=== PATIENT | male | born 1960 | race Caucasian/White ===

== ENCOUNTER 2021-03-06 00:44 | Inpatient (IN) ==
[2021-03-06 01:51] LABS: Basophils # (auto) 0.01 K/uL (0-0.2); Basophils % (auto) 0.2 %; Eosinophils # (auto) 0.16 K/uL (0-0.5); Eosinophils % (auto) 3.1 %; Hematocrit (blood only) 30.8 % (42-52); Hemoglobin 10.1 g/dL (14.0-18.0); Immature Granulocytes # (auto) 0.02 K/uL (0.00-0.02); Immature Granulocytes % (auto) 0.4 %; Lymphocytes # (auto) 1.05 K/uL (1.2-3.4); Lymphocytes % (auto) 20.5 %; Mean Corpuscular Hemoglobin 30.4 pg (25-34); Mean Corpuscular Hgb Conc 32.8 g/dL (32-36); Mean Corpuscular Volume 92.8 fL (80-100); Mean Platelet Volume 9.7 fL (7.4-10.4); Monocytes % (auto) 13.7 %; Neutrophils # (auto) 3.17 K/uL (1.4-6.5); Neutrophils % (auto) 62.1 %; Platelet Count 148 K/uL (130-400); RDW Coefficient of Variation 16.9 % (11.5-14.5); RDW Standard Deviation 56.9 fL (36.4-46.3); Red Blood Count 3.32 M/uL (4.7-6.1); White Blood Count 5.11 K/uL (4.8-10.8)
[2021-03-06 02:09] LABS: Alanine Aminotransferase 29 U/L (12-78); Albumin Level 2.9 gm/dl (3.4-5.0); Aspartate Aminotransferase 33 U/L (15-37); BUN Creatinine Ratio 21.8 (10-20); Blood Urea Nitrogen 16 mg/dl (7-18); Carbon Dioxide 25 mmol/L (21-32); Chloride 108 mmol/L (98-107); Creatinine Clr Calc Pharmacy 223.1 ml/min; Est GFR (African American) 118.5 ml/min; Est GFR (Non-African American) 102.2 ml/min; Glucose 108 mg/dl (70-99); Potassium 4.2 mmol/L (3.5-5.1); Sodium 136 mmol/L (136-145)
[2021-03-06 02:14] LABS: Albumin Globulin Ratio 0.8 (0.9-2); Alkaline Phosphatase 248 U/L (45-117); Bilirubin,Total 0.4 mg/dl (0.2-1); Globulin 3.8 gm/dl (2.5-4.0); Total Protein 6.7 gm/dl (6.4-8.2); Troponin I < 0.015 ng/ml (0-0.045)
[2021-03-06] MEDS ORDERED: BUMETANIDE 2 MG in SYRINGE 0 ML IV ONE (02:23)
[2021-03-06 02:27] LABS: NT Pro B Type Natriuretic Pept 125 pg/ml (0-900)
--- NOTE | 2021-03-06 02:47 | Emergency Department Note ---
History of Present Illness General Chief complaint: Chest Pain Stated complaint: CHEST PAIN Time Seen by Provider: 03/06/21 01:02 Source: patient Mode of arrival: EMS Limitations: no limitations History of Present Illness Provider complaint: Chest pain, shortness of breath, increased fluid Onset (ago): day(s) Associated symptoms: + chest pain, + cough and + shortness of breath; no fever/chills or no nausea/vomiting Treatments prior to arrival: none This is a 60-year-old male presents via EMS from [facility] due to complaint of chest pain. Patient states over the course of the last week since he was admitted there they have been giving him Lasix instead of his usual Bumex. He states his terra cotta setter had told him that the Lasix no longer works on him and he has been on Bumex for a while. He states despite them giving him Lasix, he h as continued to have increasing lower extremity edema, over the last few days has not had accompanying orthopnea and increased shortness of breath and tonight developed left-sided chest pain. Patient's terra cotta setter is typically out of the area. He does not recall when he last had an echo. Patient denies fevers, chills, or worsening cough. Patient states he does typically wear CPAP at night. Patient denies vomiting, diarrhea. Pt seen during a time of high acuity and national emergency pandemic while wearing PPE. Home Medications Medication Instructions Recorded Confirmed Type acetaminophen 325 mg capsule 650 mg PO Q6H 02/15/21 03/06/21 History (Tylenol) cyclobenzaprine 10 mg tablet 10 mg PO TID 02/15/21 03/06/21 History diclofenac sodium 1 % topical gel 4 g TOPICAL TID 02/15/21 03/06/21 History magnesium hydroxide 400 mg/5 mL 30 ml PO UD PRN 02/15/21 03/06/21 History oral suspension (Milk of Magnesia) oxycodone 10 mg tablet 10 mg PO Q6H 02/15/21 03/06/21 History pramipexole 0.5 mg tablet (Mirapex) 0.5 mg PO HS 02/15/21 03/06/21 History pregabalin 100 mg capsule (Lyrica) 100 mg PO BID 02/15/21 03/06/21 History sulfasalazine 500 mg 1 g PO BID 02/15/21 03/06/21 History tablet,delayed release acetaminophen 325 mg tablet 650 mg PO Q6H PRN 03/06/21 03/06/21 History (Tylenol) aspirin 81 mg tablet,delayed 81 mg PO DAILY 03/06/21 03/06/21 History release bisacodyl 5 mg tablet,delayed 5 mg PO DAILY 03/06/21 03/06/21 History release citalopram 20 mg tablet (Celexa) 20 mg PO DAILY 03/06/21 03/06/21 History ferrous sulfate 325 mg (65 mg 325 mg PO DAILY 03/06/21 03/06/21 History iron) tablet fluticasone propionate 50 2 spray INTRANASAL HS 03/06/21 03/06/21 History mcg/actuation nasal spray,suspension furosemide 20 mg tablet (Lasix) 20 mg PO DAILY 03/06/21 03/06/21 History irbesartan 300 mg tablet 300 mg PO DAILY 03/06/21 03/06/21 History lamotrigine 200 mg tablet 400 mg PO DAILY 03/06/21 03/06/21 History (Lamictal) lansoprazole 30 mg capsule,delayed 30 mg PO DAILYBB 03/06/21 03/06/21 History release ondansetron HCl 4 mg tablet 4 mg PO Q6H PRN 03/06/21 03/06/21 History (Zofran) polyethylene glycol 3350 17 17 g PO DAILY PRN 03/06/21 03/06/21 History gram/dose oral powder (Miralax) Allergies Allergy/AdvReac Type Severity Reaction Status Date / Time No Known Allergies Allergy Verified 03/06/21 01:34 Past Med/Surg History Medical History (Updated 03/06/21 @ 10:17 by Jeremy Valerio DO) Anxiety disorder Cellulitis Delirium Hypertension Obesity Obstructive sleep apnea Restless leg syndrome Sepsis Septic joint of right knee joint Social History Smoking Status: Current some day smoker Tobacco Type: Pipe Second Hand Exposure: Yes; Do You Dip or Chew Tobacco: No; Tobacco Cessation Education Requested by Patient: No Hx Alcohol Use: Yes (has not had alcohol in a year and a half) Hx Substance Use: No Preferred Language: Syriac Communication Ability: Effective Wood Borer Required: No Beliefs That Will Affect Care: None Current Living Situation: Significant Other Other Information That Helps Us Care for You: No Feels Safe at Home: Yes Safety Concerns: Feels Safe At This Time Assistive Devices: Walker Review of Systems A total of 10 systems reviewed and were otherwise negative All systems reviewed & are unremarkable except as noted in HPI & below Physical Exam Vital Signs Vital Signs - 24 hr 03/06/21 00:54 03/06/21 00:57 03/06/21 01:00 Temperature 37.1 C Temperature Source Oral Pulse Rate 87 88 85 Pulse Rate [Finger] Pulse Rate from SpO2 Sensor 87 86 Respiratory Rate 18 17 Blood Pressure 182/89 H 182/89 H 186/85 H Blood Pressure [Right Arm] Blood Pressure Mean 120 120 118 Blood Pressure Mean [Right Arm] Pulse Oximetry 96 98 97 Oxygen Delivery Method Room Air Room Air Room Air Oxygen Flow Rate Sepsis Recent Fever Within 48 Hours No Sepsis New/Unexplained Change in Mental Status N/A Sepsis Action Taken by Nursing No Action Required 03/06/21 01:04 03/06/21 01:14 03/06/21 01:30 Temperature Temperature Source Pulse Rate 85 Pulse Rate [Finger] 88 Pulse Rate from SpO2 Sensor 85 Respiratory Rate 15 Blood Pressure 193/100 H Blood Pressure [Right Arm] 182/89 H Blood Pressure Mean 131 Blood Pressure Mean [Right Arm] 120 Pulse Oximetry 98 98 98 Oxygen Delivery Method Room Air Room Air Room Air Oxygen Flow Rate 0 Sepsis Recent Fever Within 48 Hours Sepsis New/Unexplained Change in Mental Status Sepsis Action Taken by Nursing 03/06/21 01:38 03/06/21 02:00 03/06/21 02:10 Temperature Temperature Source Pulse Rate 83 85 85 Pulse Rate [Finger] Pulse Rate from SpO2 Sensor 86 85 Respiratory Rate 17 15 Blood Pressure Blood Pressure [Right Arm] Blood Pressure Mean Blood Pressure Mean [Right Arm] Pulse Oximetry 98 99 Oxygen Delivery Method Room Air Oxygen Flow Rate Sepsis Recent Fever Within 48 Hours Sepsis New/Unexplained Change in Mental Status Sepsis Action Taken by Nursing 03/06/21 02:30 03/06/21 03:00 03/06/21 03:30 Temperature Temperature Source Pulse Rate 81 90 86 Pulse Rate [Finger] Pulse Rate from SpO2 Sensor 81 89 86 Respiratory Rate 15 19 17 Blood Pressure 143/89 H 163/88 H Blood Pressure [Right Arm] Blood Pressure Mean 107 113 Blood Pressure Mean [Right Arm] Pulse Oximetry 98 98 100 Oxygen Delivery Method Oxygen Flow Rate Sepsis Recent Fever Within 48 Hours Sepsis New/Unexplained Change in Mental Status Sepsis Action Taken by Nursing 03/06/21 04:00 Temperature Temperature Source Pulse Rate 92 H Pulse Rate [Finger] Pulse Rate from SpO2 Sensor 92 H Respiratory Rate 16 Blood Pressure 152/95 H Blood Pressure [Right Arm] Blood Pressure Mean 114 Blood Pressure Mean [Right Arm] Pulse Oximetry 95 Oxygen Delivery Method Oxygen Flow Rate Sepsis Recent Fever Within 48 Hours Sepsis New/Unexplained Change in Mental Status Sepsis Action Taken by Nursing GENERAL: alert, well appearing, well nourished, no distress, non-toxic, BMI 69 EYE EXAM: normal conjunctiva, PERRL and EOM's grossly intact OROPHARYNX: no exudate, no erythema, lips, buccal mucosa, and tongue normal and mucous membranes are moist NECK: supple, no nuchal rigidity, no adenopathy, non-tender LUNGS: Clear to auscultation. Normal chest wall mechanics, no w/r/r HEART: no murmurs, S1 normal and S2 normal, mild tenderness with palpation left anterior inferior ribs, no step off, no crepitus ABDOMEN: abdomen soft, non-tender, normo-active bowel sounds, no masses, no rebound or guarding. BACK: Back is symmetrical on inspection and there is no deformity, no midline tenderness, no CVA tenderness. SKIN: no rashes and no bruising UPPER EXTREMITIES: upper extremities are grossly normal. FROM, nml pulses b/l. LOWER EXTREMITIES: 3+ b/l pitting edema. FROM, nml pulses b/l. NEURO EXAM: Normal sensorium, cranial nerves II-XII grossly intact, normal speech, no gross weakness of arms, no gross weakness of legs. Gross sensation intact. Course Course 39480: Patient states he typically is supposed be taking 2 mg of Bumex daily. 0350: Discussed with hospitalist. BP improved. Administered Medications Acetaminophen (Acetaminophen 325 Mg Tab) 650 mg PO Q6H MALAIKA Stop: 04/05/21 09:59 Last Admin: 03/07/21 04:07 Dose: 650 mg Documented by: [id number] Admin: 03/06/21 20:41 Dose: 650 mg Documented by: [id number] Admin: 03/06/21 16:41 Dose: 650 mg Documented by: [id number] Admin: 03/06/21 10:46 Dose: 650 mg Documented by: [id number] Aspirin (Aspirin 81 Mg Ectab) 81 mg PO DAILY MALAIKA Stop: 04/05/21 09:20 Last Admin: 03/07/21 08:54 Dose: 81 mg Documented by: [id number] Admin: 03/06/21 10:45 Dose: 81 mg Documented by: [id number] Bisacodyl (Bisacodyl 5 Mg Tabec) 5 mg PO DAILY MALAIKA Stop: 04/05/21 09:20 Last Admin: 03/07/21 08:56 Dose: Not Given Documented by: [id number] Admin: 03/06/21 16:38 Dose: Not Given Documented by: [id number] Citalopram Hydrobromide (Citalopram 20 Mg Tab) 20 mg PO DAILY MALAIKA Stop: 04/05/21 09:20 Last Admin: 03/07/21 08:55 Dose: 20 mg Documented by: [id number] Admin: 03/06/21 10:46 Dose: 20 mg Documented by: [id number] Cyclobenzaprine HCl (Cyclobenzaprine Hcl 10 Mg Tab) 10 mg PO 0100,0800,1600 MALAIKA Stop: 04/05/21 09:59 Last Admin: 03/07/21 08:55 Dose: 10 mg Documented by: [id number] Admin: 03/07/21 00:28 Dose: Not Given Documented by: [id number] Admin: 03/06/21 16:42 Dose: 10 mg Documented by: [id number] Admin: 03/06/21 10:46 Dose: 10 mg Documented by: [id number] Diclofenac Sodium (Diclofenac Sod 1% Gel 100 Gm Tube) 4 gm EXT TID MALAIKA Stop: 04/05/21 09:20 Last Admin: 03/07/21 08:56 Dose: Not Given Documented by: [id number] Admin: 03/06/21 20:42 Dose: Not Given Documented by: [id number] Admin: 03/06/21 16:38 Dose: Not Given Documented by: [id number] Admin: 03/06/21 10:49 Dose: Not Given Documented by: [id number] Enoxaparin Sodium (Enoxaparin Inj 40 Mg/0.4 Ml Syr) 40 mg SQ QAM MALAIKA Stop: 04/05/21 09:20 Last Admin: 03/07/21 08:59 Dose: 40 mg Documented by: [id number] Admin: 03/06/21 10:44 Dose: 40 mg Documented by: [id number] Ferrous Sulfate (Ferrous Sulfate 325 Mg Tab) 325 mg PO DAILY MALAIKA Stop: 04/05/21 09:59 Last Admin: 03/07/21 08:55 Dose: 325 mg Documented by: [id number] Admin: 03/06/21 10:46 Dose: 325 mg Documented by: [id number] Fluticasone Propionate (Fluticasone Propionate Na Spr 16 Gm Btl) 2 sprays NA HS MALAIKA Stop: 04/05/21 20:59 Last Admin: 03/06/21 20:43 Dose: 2 sprays Documented by: [id number] Bumetanide 2 mg/ Syringe 8 mls @ 4 mls/min IV BID@0900,1700 [facility] Stop: 04/05/21 09:54 Last Admin: 03/07/21 09:05 Dose: 4 mls/min Documented by: [id number] Admin: 03/06/21 16:41 Dose: 4 mls/min Documented by: [id number] Admin: 03/06/21 10:49 Dose: 4 mls/min Documented by: [id number] Irbesartan (Irbesartan 150 Mg Tab) 300 mg PO DAILY MALAIKA Stop: 04/06/21 08:59 Last Admin: 03/07/21 08:54 Dose: 300 mg Documented by: [id number] Lamotrigine (Lamotrigine 100 Mg Tab) 400 mg PO DAILY [facility] Stop: 04/05/21 09:20 Last Admin: 03/07/21 08:55 Dose: 400 mg Documented by: [id number] Admin: 03/06/21 10:45 Dose: 400 mg Documented by: [id number] Metoprolol Succinate (Metoprolol Succ 25mg Ext Rel Tab) 25 mg PO QAM MALAIKA Stop: 04/05/21 13:59 Last Admin: 03/07/21 08:55 Dose: 25 mg Documented by: [id number] Admin: 03/06/21 14:15 Dose: 25 mg Documented by: [id number] Oxycodone HCl (Oxycodone Hcl Ir 5 Mg Tab (Immediate Release)) 10 mg PO Q6 [facility] Stop: 03/20/21 11:59 Last Admin: 03/07/21 04:07 Dose: 10 mg Documented by: [id number] Admin: 03/07/21 00:28 Dose: Not Given Documented by: [id number] Admin: 03/06/21 16:38 Dose: 10 mg Documented by: [id number] Admin: 03/06/21 11:00 Dose: Not Given Documented by: [id number] Oxycodone HCl (Oxycodone Hcl Ir 5 Mg Tab (Immediate Release)) 5 mg PO Q4H PRN PRN Reason: Pain Stop: 03/20/21 09:20 Last Admin: 03/06/21 10:43 Dose: 5 mg Documented by: [id number] Pantoprazole Sodium (Pantoprazole 40 Mg Tab) 40 mg PO DAILYBB MALAIKA Stop: 04/06/21 06:29 Last Admin: 03/07/21 04:07 Dose: 40 mg Documented by: [id number] Potassium Chloride (Potassium Chloride Crtab 20 Meq Tabcr) 20 meq PO BID MALAIKA Stop: 04/05/21 09:20 Last Admin: 03/07/21 08:55 Dose: 20 meq Documented by: [id number] Admin: 03/06/21 20:42 Dose: 20 meq Documented by: [id number] Admin: 03/06/21 10:45 Dose: 20 meq Documented by: [id number] Pramipexole Dihydrochloride (Pramipexole Dihydrochlo 0.5 Mg Tab) 0.5 mg PO HS MALAIKA Stop: 04/05/21 20:59 Last Admin: 03/06/21 20:41 Dose: 0.5 mg Documented by: [id number] Pregabalin (Pregabalin 100 Mg Cap) 100 mg PO BID MALAIKA Stop: 04/05/21 09:20 Last Admin: 03/07/21 09:05 Dose: 100 mg Documented by: [id number] Admin: 03/06/21 20:41 Dose: 100 mg Documented by: [id number] Admin: 03/06/21 10:44 Dose: 100 mg Documented by: [id number] Sulfasalazine (Sulfasalazine 500 Mg Tabec) 1,000 mg PO BID MALAIKA Stop: 04/05/21 09:20 Last Admin: 03/07/21 08:54 Dose: 1,000 mg Documented by: [id number] Admin: 03/06/21 20:42 Dose: 1,000 mg Documented by: [id number] Admin: 03/06/21 14:42 Dose: 1,000 mg Documented by: [id number] Discontinued Medications Furosemide (Furosemide 40 Mg/4 Ml Vial) 40 mg IV BID MALAIKA Stop: 03/06/21 21:01 Last Admin: 03/06/21 19:45 Dose: Not Given Documented by: [id number] Bumetanide 2 mg/ Syringe 8 mls @ 4 mls/min IV ONE ONE Stop: 03/06/21 02:24 Last Admin: 03/06/21 02:57 Dose: 4 mls/min Documented by: [id number] Irbesartan (Irbesartan 150 Mg Tab) 300 mg PO NOW STA Stop: 03/06/21 06:03 Last Admin: 03/06/21 08:47 Dose: 300 mg Documented by: [id number] Metoprolol Tartrate (Metoprolol Tartrate 25 Mg Tab) 12.5 mg PO NOW STA Stop: 03/06/21 06:01 Last Admin: 03/06/21 06:21 Dose: 12.5 mg Documented by: [id number] Nitroglycerin (Nitroglycerin 2% Ointment 30gm Tube) 1 inch EXT NOW STA Stop: 03/06/21 03:19 Last Admin: 03/06/21 03:46 Dose: 1 inch Documented by: [id number] Medical Decision Making Differential Diagnosis Differential diagnoses includes but is not limited to acute coronary syndrome, myocardial infarction, pericarditis, pulmonary embolus, aortic dissection, pneumonia, pneumothorax, musculoskeletal, shingles, esophageal. Medical Records Attestation: I reviewed the patient's medical records. Home Medications Current Medication List: was personally reviewed by me Laboratory Data Attestation: I reviewed the patient's lab results. Result diagrams: 03/07/21 06:04 03/07/21 07:12 Lab Results 03/06/21 03/06/21 03/06/21 Range/Units 01:41 01:41 01:41 WBC 5.11 (4.8-10.8) K/uL RBC 3.32 L (4.7-6.1) M/uL Hgb 10.1 L (14.0-18.0) g/dL Hct 30.8 L (42-52) % MCV 92.8 (80-100) fL MCH 30.4 (25-34) pg MCHC 32.8 (32-36) g/dL RDW Std Deviation 56.9 H (36.4-46.3) fL RDW Coeff of Pablo 16.9 H (11.5-14.5) % Plt Count 148 (130-400) K/uL MPV 9.7 (7.4-10.4) fL Immature Gran % (Auto) 0.4 % Neut % (Auto) 62.1 % Lymph % (Auto) 20.5 % [place] % (Auto) 13.7 % Eos % (Auto) 3.1 % Baso % (Auto) 0.2 % Neut # (Auto) 3.17 (1.4-6.5) K/uL Lymph # (Auto) 1.05 L (1.2-3.4) K/uL [place] # (Auto) 0.70 H (0.11-0.59) K/uL Eos # (Auto) 0.16 (0-0.5) K/uL Baso # (Auto) 0.01 (0-0.2) K/uL Immature Gran # (Auto) 0.02 (0.00-0.02) K/uL PT Cancelled INR Cancelled APTT Cancelled PTT Ratio Cancelled Sodium 136 (136-145) mmol/L Potassium 4.2 (3.5-5.1) mmol/L Chloride 108 H (98-107) mmol/L Carbon Dioxide 25 (21-32) mmol/L Anion Gap 3.0 (3-11) BUN 16 (7-18) mg/dl Creatinine 0.73 (0.6-1.4) mg/dl Est Cr Clr Drug Dosing 223.1 ml/min Est GFR ( Amer) 118.5 ml/min Est GFR (Non-Af Amer) 102.2 ml/min BUN/Creatinine Ratio 21.8 H (10-20) Glucose 108 H (70-99) mg/dl Estimat Average Glucose mg/dl Hemoglobin A1c (4.5-5.6) % Calcium 8.0 L (8.5-10.1) mg/dl Magnesium 1.8 (1.8-2.4) mg/dl Total Bilirubin 0.4 (0.2-1) mg/dl AST 33 (15-37) U/L ALT 29 (12-78) U/L Alkaline Phosphatase 248 H (45-117) U/L Troponin I < 0.015 (0-0.045) ng/ml NT-Pro-B Natriuret Pep 125 (0-900) pg/ml Total Protein 6.7 (6.4-8.2) gm/dl Albumin 2.9 L (3.4-5.0) gm/dl Globulin 3.8 (2.5-4.0) gm/dl Albumin/Globulin Ratio 0.8 L (0.9-2) TSH 1.650 (0.300-4.500) uIu/ml COVID-19 Eval Order SARS-CoV-2 (PCR) (Negative) 03/06/21 03/06/21 03/06/21 Range/Units 01:41 03:38 03:38 WBC (4.8-10.8) K/uL RBC (4.7-6.1) M/uL Hgb (14.0-18.0) g/dL Hct (42-52) % MCV (80-100) fL MCH (25-34) pg MCHC (32-36) g/dL RDW Std Deviation (36.4-46.3) fL RDW Coeff of Pablo (11.5-14.5) % Plt Count (130-400) K/uL MPV (7.4-10.4) fL Immature Gran % (Auto) % Neut % (Auto) % Lymph % (Auto) % [place] % (Auto) % Eos % (Auto) % Baso % (Auto) % Neut # (Auto) (1.4-6.5) K/uL Lymph # (Auto) (1.2-3.4) K/uL [place] # (Auto) (0.11-0.59) K/uL Eos # (Auto) (0-0.5) K/uL Baso # (Auto) (0-0.2) K/uL Immature Gran # (Auto) (0.00-0.02) K/uL PT INR APTT PTT Ratio Sodium (136-145) mmol/L Potassium (3.5-5.1) mmol/L Chloride (98-107) mmol/L Carbon Dioxide (21-32) mmol/L Anion Gap (3-11) BUN (7-18) mg/dl Creatinine (0.6-1.4) mg/dl Est Cr Clr Drug Dosing ml/min Est GFR ( Amer) ml/min Est GFR (Non-Af Amer) ml/min BUN/Creatinine Ratio (10-20) Glucose (70-99) mg/dl Estimat Average Glucose 97 mg/dl Hemoglobin A1c 5.0 (4.5-5.6) % Calcium (8.5-10.1) mg/dl Magnesium (1.8-2.4) mg/dl Total Bilirubin (0.2-1) mg/dl AST (15-37) U/L ALT (12-78) U/L Alkaline Phosphatase (45-117) U/L Troponin I (0-0.045) ng/ml NT-Pro-B Natriuret Pep (0-900) pg/ml Total Protein (6.4-8.2) gm/dl Albumin (3.4-5.0) gm/dl Globulin (2.5-4.0) gm/dl Albumin/Globulin Ratio (0.9-2) TSH (0.300-4.500) uIu/ml COVID-19 Eval Order Covid19 at [facility] SARS-CoV-2 (PCR) NEGATIVE (Negative) 03/06/21 03/06/21 Range/Units 04:40 04:40 WBC (4.8-10.8) K/uL RBC (4.7-6.1) M/uL Hgb (14.0-18.0) g/dL Hct (42-52) % MCV (80-100) fL MCH (25-34) pg MCHC (32-36) g/dL RDW Std Deviation (36.4-46.3) fL RDW Coeff of Pablo (11.5-14.5) % Plt Count (130-400) K/uL MPV (7.4-10.4) fL Immature Gran % (Auto) % Neut % (Auto) % Lymph % (Auto) % [place] % (Auto) % Eos % (Auto) % Baso % (Auto) % Neut # (Auto) (1.4-6.5) K/uL Lymph # (Auto) (1.2-3.4) K/uL [place] # (Auto) (0.11-0.59) K/uL Eos # (Auto) (0-0.5) K/uL Baso # (Auto) (0-0.2) K/uL Immature Gran # (Auto) (0.00-0.02) K/uL PT INR APTT 27.0 PTT Ratio 1.0 Sodium (136-145) mmol/L Potassium (3.5-5.1) mmol/L Chloride (98-107) mmol/L Carbon Dioxide (21-32) mmol/L Anion Gap (3-11) BUN (7-18) mg/dl Creatinine (0.6-1.4) mg/dl Est Cr Clr Drug Dosing ml/min Est GFR ( Amer) ml/min Est GFR (Non-Af Amer) ml/min BUN/Creatinine Ratio (10-20) Glucose (70-99) mg/dl Estimat Average Glucose mg/dl Hemoglobin A1c (4.5-5.6) % Calcium (8.5-10.1) mg/dl Magnesium (1.8-2.4) mg/dl Total Bilirubin (0.2-1) mg/dl AST (15-37) U/L ALT (12-78) U/L Alkaline Phosphatase (45-117) U/L Troponin I < 0.015 (0-0.045) ng/ml NT-Pro-B Natriuret Pep (0-900) pg/ml Total Protein (6.4-8.2) gm/dl Albumin (3.4-5.0) gm/dl Globulin (2.5-4.0) gm/dl Albumin/Globulin Ratio (0.9-2) TSH (0.300-4.500) uIu/ml COVID-19 Eval Order SARS-CoV-2 (PCR) (Negative) Imaging Data My Impression: X-ray: I interpreted the following studies. Chest: A single view study of the chest was reviewed and was negative for focal infiltrate, effusion, or wide mediastinum. Mild cardiomegaly noted, increased interstitial markings bilaterally suggestive of evolving pulmonary edema. ECG Data Attestation: I personally reviewed and interpreted this ECG as follows: Indication: + chest pain Rate (beats per minute): 88 Rhythm: + normal sinus ECG Intervals/blocks: + Right Bundle branch block and + Normal QT ECG Basile: + Normal ECG ST segments: + Nonspecific ST abnormalities MDM Narrative This is a 60-year-old male presents emergency department with complaints of chest pain and volume overload. Patient has been receiving Lasix although he states previously he was told the Lasix no longer worked and he should be receiving Bumex instead. Patient has been developing worsening dyspnea on exertion and accompanying orthopnea and feels that his lower extremities have increased in size due to fluid. Patient then this evening developed accompan benji chest pain which prompted the facility sent in the emergency room. Patient's EKG reassuring, labs drawn and sent and troponin negative. BNP was not significantly elevated despite patient's obvious lower extremity edema and history of CHF. Patient was afebrile and hemodynamically stable. Chest x-ray reassuring. Patient had no increased work of breathing or hypoxia noted while here. Patient's chest pain did resolve. Case discussed with hospitalist for additional evaluation and management. Patient does have several risk factors for ACS, however based on clinical exam I do suspect a component of volume overload. Patient was given a dose of Bumex in the emergency room. I do not suspect hypertensive emergency, PE, pleural effusion, occult infection, or acute vascular etiology of his chest pain at this time. An order was placed for continuous cardiac monitoring. The monitor shows a rate of _62__ with __normal sinus__ rhythm. Impression & Plan Chest pain, Hypertension, Bilateral edema of lower extremity, Pulmonary edema Discharge Plan Visit Data Chief Complaint: Chest Pain Stated Complaint: CHEST PAIN ED Provider: Marylin Mace Discharge Problem: Chest pain, Hypertension, Bilateral edema of lower extremity, Pulmonary edema Patient Disposition: Admitted As Inpatient Discharge Instructions Interventions: ED Discharge Assessment Last Done: 03/06/21 09:00 Discharge Problem: Chest pain Qualifiers: Chest pain type: unspecified Qualified Code(s): R07.9 - Chest pain, unspecified Hypertension Qualifiers: Hypertension type: primary hypertension Qualified Code(s): I10 - Essential (primary) hypertension Pulmonary edema Qualifiers: Chronicity: acute Qualified Code(s): J81.0 - Acute pulmonary edema
[2021-03-06] MEDS ORDERED: NITROGLYCERIN 2% OINTMENT 30GM TUBE EXT STA (03:18)
[2021-03-06 04:27] LABS: Magnesium 1.8 mg/dl (1.8-2.4)
--- NOTE | 2021-03-06 04:30 | History & Physical Report ---
Date of Service March 06, 2021 Assessment & Plan (1) Decompensated heart failure: Plan: Weight gain of almost 20 pounds on review of documented weight from [facility] ER visit from last month Right-sided heart failure with normal BNP, hx ABNER on CPAP Multifactorial : Missed Bumex rx (patient getting Lasix at rehab facility instead of her usual Bumex) Uncontrolled BP Chest pain secondary to above mood disorder, at baseline RLS, chronic pain secondary to rheumatoid arthritis on narcotics and sulfasalazine, at baseline septic arthritis status post surgery/antibiotic Rx. Hyperglycemia rule out DM PCU IV diuresis for now followed by transition to oral Bumex Add beta-miki to home ARB Strict I/Os, daily weights, CHF education, fluid restriction TTE, Cardiology consult Re: CHF Obtain outpatient cardiology records (Dr. Goodwin, [facility]) Check hemoglobin A1c DVT prophylaxis per Lovenox subcu Full code Text document was generated using [employer] voice recognition software. It may contain grammatical or spelling errors. Kindly contact undersigned for clarification of any documentation item in question. History of Present Illness Chief Complaint: Chest pain, shortness of breath, fluid retention Primary Care Provider: Dr. Dahl from [place], [place] History obtained from patient and records. Medical history significant for CHF, hypertension, ABNER on CPAP, mood disorder, RLS, chronic pain secondary to rheumatoid arthritis on narcotics and sulfasalazine, septic arthritis status post surgery/antibiotic Rx. Patient confined at [facility] for about a month from late November to December 2020 for septic arthritis (right knee and right wrist) status post surgery, antibiotic Rx. Patient subsequently transferred to [facility] following confinement. The last week, patient noted fluid retention/weight gain/leg swelling, shortness of breath with exertion. No cough symptoms. Patient being given daily Lasix at rehab facility in place of usual Bumex Rx. Patient relayed concerns about prior outpatient Bumex Rx to rehab facility provider but did not get any answers as per patient. Patient compliant with CPAP, denies dietary indiscretion, no OTC NSAID intake. Last night patient had transient achy left-sided chest pain going to the neck with some shortness of breath. Chest pain nonpleuritic. Patient brought to the ER for evaluation. SBP 180s upon arrival at the ER. Nitropaste and Lasix administered at the ER. Patient currently comfortable. Medical History as above Surgical History : Orthopedic procedures Family History : HTN Personal/Social history : Non-smoker, no EtOH intake, disabled Allergies Allergy/AdvReac Type Severity Reaction Status Date / Time No Known Allergies Allergy Verified 03/06/21 01:34 Home Medications Medication Instructions Recorded Confirmed Type acetaminophen 325 mg capsule 650 mg PO Q6H 02/15/21 03/06/21 History (Tylenol) cyclobenzaprine 10 mg tablet 10 mg PO TID 02/15/21 03/06/21 History diclofenac sodium 1 % topical gel 4 g TOPICAL TID 02/15/21 03/06/21 History magnesium hydroxide 400 mg/5 mL 30 ml PO UD PRN 02/15/21 03/06/21 History oral suspension (Milk of Magnesia) oxycodone 10 mg tablet 10 mg PO Q6H 02/15/21 03/06/21 History pramipexole 0.5 mg tablet (Mirapex) 0.5 mg PO HS 02/15/21 03/06/21 History pregabalin 100 mg capsule (Lyrica) 100 mg PO BID 02/15/21 03/06/21 History sulfasalazine 500 mg 1 g PO BID 02/15/21 03/06/21 History tablet,delayed release acetaminophen 325 mg tablet 650 mg PO Q6H PRN 03/06/21 03/06/21 History (Tylenol) aspirin 81 mg tablet,delayed 81 mg PO DAILY 03/06/21 03/06/21 History release bisacodyl 5 mg tablet,delayed 5 mg PO DAILY 03/06/21 03/06/21 History release citalopram 20 mg tablet (Celexa) 20 mg PO DAILY 03/06/21 03/06/21 History ferrous sulfate 325 mg (65 mg 325 mg PO DAILY 03/06/21 03/06/21 History iron) tablet fluticasone propionate 50 2 spray INTRANASAL HS 03/06/21 03/06/21 History mcg/actuation nasal spray,suspension furosemide 20 mg tablet (Lasix) 20 mg PO DAILY 03/06/21 03/06/21 History irbesartan 300 mg tablet 300 mg PO DAILY 03/06/21 03/06/21 History lamotrigine 200 mg tablet 400 mg PO DAILY 03/06/21 03/06/21 History (Lamictal) lansoprazole 30 mg capsule,delayed 30 mg PO DAILYBB 03/06/21 03/06/21 History release ondansetron HCl 4 mg tablet 4 mg PO Q6H PRN 03/06/21 03/06/21 History (Zofran) polyethylene glycol 3350 17 17 g PO DAILY PRN 03/06/21 03/06/21 History gram/dose oral powder (Miralax) Past Med/Surg History Medical History (Updated 03/06/21 @ 06:13 by Jose Patterson MD) Anxiety disorder Cellulitis Delirium Hypertension Obesity Obstructive sleep apnea Restless leg syndrome Sepsis Septic joint of right knee joint Social History Smoking Status: Light tobacco smoker Tobacco Type: Pipe Feels Safe at Home: Yes Review of Systems Review of Systems: As per HPI, all 10 systems reviewed, all other ROS negative Physical Exam Physical Exam: GENERAL: Comfortable, morbidly obese, pleasant, no respiratory distress SKIN: Normal color, warm HEENT: [place] palpebral conjunctivae, no ptosis, moist buccal mucosa NECK : Supple, short neck, no tenderness CHEST : Decreased breath sounds, no tenderness HEART : RRR, no obvious murmurs ABDOMEN: Some distention, nontender EXTREMITIES : Bilateral LE swelling, no LE tenderness, no other conspicuous deformities noted NEUROLOGIC : Coherent, no facial asymmetry, no other gross focality Results & Data Results & Data ([facility]) Vital Signs (Past 12 Hours) Vital Signs Temp Pulse Pulse Resp BP BP Pulse Ox 03/06/21 04:00 92 H 16 152/95 H 95 03/06/21 03:30 86 17 163/88 H 100 03/06/21 03:00 90 19 143/89 H 98 03/06/21 02:30 81 15 98 03/06/21 02:10 85 15 99 03/06/21 02:00 85 17 98 03/06/21 01:38 83 03/06/21 01:30 85 15 193/100 H 98 03/06/21 01:14 98 03/06/21 01:04 88 182/89 H 98 03/06/21 01:00 85 17 186/85 H 97 03/06/21 00:57 37.1 C 88 182/89 H 98 03/06/21 00:54 87 18 182/89 H 96 Laboratory Results Laboratory Results WBC 5.11 K/uL (4.8-10.8) 03/06/21 01:41 RBC 3.32 M/uL (4.7-6.1) L 03/06/21 01:41 Hgb 10.1 g/dL (14.0-18.0) L 03/06/21 01:41 Hct 30.8 % (42-52) L 03/06/21 01:41 MCV 92.8 fL (80-100) 03/06/21 01:41 MCH 30.4 pg (25-34) 03/06/21 01:41 MCHC 32.8 g/dL (32-36) 03/06/21 01:41 RDW Std Deviation 56.9 fL (36.4-46.3) H 03/06/21 01:41 RDW Coeff of Pablo 16.9 % (11.5-14.5) H 03/06/21 01:41 Plt Count 148 K/uL (130-400) 03/06/21 01:41 MPV 9.7 fL (7.4-10.4) 03/06/21 01:41 Immature Gran % (Auto) 0.4 % 03/06/21 01:41 Neut % (Auto) 62.1 % 03/06/21 01:41 Lymph % (Auto) 20.5 % 03/06/21 01:41 Sab[place] % (Auto) 13.7 % 03/06/21 01:41 Eos % (Auto) 3.1 % 03/06/21 01:41 Baso % (Auto) 0.2 % 03/06/21 01:41 Neut # (Auto) 3.17 K/uL (1.4-6.5) 03/06/21 01:41 Lymph # (Auto) 1.05 K/uL (1.2-3.4) L 03/06/21 01:41 Sabine # (Auto) 0.70 K/uL (0.11-0.59) H 03/06/21 01:41 Eos # (Auto) 0.16 K/uL (0-0.5) 03/06/21 01:41 Baso # (Auto) 0.01 K/uL (0-0.2) 03/06/21 01:41 Immature Gran # (Auto) 0.02 K/uL (0.00-0.02) 03/06/21 01:41 PT Cancelled 03/06/21 01:41 INR Cancelled 03/06/21 01:41 APTT Cancelled 03/06/21 01:41 PTT Ratio Cancelled 03/06/21 01:41 Sodium 136 mmol/L (136-145) 03/06/21 01:41 Potassium 4.2 mmol/L (3.5-5.1) 03/06/21 01:41 Chloride 108 mmol/L (98-107) H 03/06/21 01:41 Carbon Dioxide 25 mmol/L (21-32) 03/06/21 01:41 Anion Gap 3.0 (3-11) 03/06/21 01:41 BUN 16 mg/dl (7-18) 03/06/21 01:41 Creatinine 0.73 mg/dl (0.6-1.4) 03/06/21 01:41 Est Cr Clr Drug Dosing 223.1 ml/min 03/06/21 01:41 Est GFR ( Amer) 118.5 ml/min 03/06/21 01:41 Est GFR (Non-Af Amer) 102.2 ml/min 03/06/21 01:41 BUN/Creatinine Ratio 21.8 (10-20) H 03/06/21 01:41 Glucose 108 mg/dl (70-99) H 03/06/21 01:41 Calcium 8.0 mg/dl (8.5-10.1) L 03/06/21 01:41 Magnesium 1.8 mg/dl (1.8-2.4) 03/06/21 01:41 Total Bilirubin 0.4 mg/dl (0.2-1) 03/06/21 01:41 AST 33 U/L (15-37) 03/06/21 01:41 ALT 29 U/L (12-78) 03/06/21 01:41 Alkaline Phosphatase 248 U/L (45-117) H 03/06/21 01:41 Troponin I < 0.015 ng/ml (0-0.045) 03/06/21 01:41 NT-Pro-B Natriuret Pep 125 pg/ml (0-900) 03/06/21 01:41 Total Protein 6.7 gm/dl (6.4-8.2) 03/06/21 01:41 Albumin 2.9 gm/dl (3.4-5.0) L 03/06/21 01:41 Globulin 3.8 gm/dl (2.5-4.0) 03/06/21 01:41 Albumin/Globulin Ratio 0.8 (0.9-2) L 03/06/21 01:41 TSH 1.650 uIu/ml (0.300-4.500) 03/06/21 01:41 COVID-19 Eval Order Covid19 at [facility] 03/06/21 03:38 Diagnostic Findings Chest x-ray as per my interpretation congestion, cardiomegaly, atelectasis EKG as per my interpretation : Rate 90, NSR, normal axis, RBBB, no ischemia
[2021-03-06] MEDS ORDERED: METOPROLOL TARTRATE 25 MG TAB PO STA (06:00)
[2021-03-06] MEDS ORDERED: IRBESARTAN 150 MG TAB PO STA (06:02)
--- NOTE | 2021-03-06 07:31 | XRay Report ---
INDICATION: MN ^Chest Pain . TECHNIQUE: Single frontal radiograph of the chest was obtained. Comparison: None available at the time of this dictation. FINDINGS: Exam is limited by underpenetration. No lines and tubes are seen. Cardiomediastinal silhouette is pro minent. The lungs are clear. No evidence of pleural effusion or pneumothorax. IMPRESSION: Limited exam without acute abnormality. ACT 112: Negative or not required by law. Electronically signed by: Justen Gregory M.D. 03/06/2021 7:30 AM
[2021-03-06 07:47] LABS: Estimated Average Glucose 97 mg/dl
[2021-03-06] MEDS ORDERED: NITROGLYCERIN SL 0.4 MG/TAB TAB SL PRN (09:21)
[2021-03-06] MEDS ORDERED: MoRPHine SULFATE 4 MG/ML 1 ML CARP\\VIAL IV PRN (09:21)
[2021-03-06] MEDS ORDERED: oxyCODONE HCL IR 5 MG TAB (IMMEDIATE RELEASE) PO PRN (09:21)
[2021-03-06] MEDS ORDERED: PROMETHAZINE HCL 12.5 MG in SODIUM CHLORIDE 0.9% 50 ML IV PRN (09:21)
[2021-03-06] MEDS ORDERED: FUROSEMIDE 40 MG/4 ML VIAL IV SCH (09:21)
[2021-03-06] MEDS ORDERED: POLYETHYLENE (MIRALAX) 17 GM PACK PO PRN (09:21)
--- NOTE | 2021-03-06 10:15 | Cardiology Consultation ---
Date of Consultation March 06, 2021 Assessment & Plan (1) Decompensated heart failure: (2) Bilateral edema of lower extremity: (3) Hypertension: Acute decompensated diastolic heart failure secondary to medication change. Echo grossly unremarkable with normal Biventricular function will continue with IV bumex for diuresis will also add evidence based beta miki today, metoprolol succinate 25mg daily will also add spironolactone for bp control and aldosterone antagonism strict I/O's and daily weights follow electrolytes and replete as necessary cont to monitor on tele History of Present Illness Reason for Consultation: acute decompensated diastolic heart failure Requesting Physician: Dr. Minaya Attending Physician: Alek Whitney MD History of Present Illness It was my pleasure to see Mr. Ballard in cardiac consultation today March 06, 2021. He is a very pleasant 60-year-old gentleman not previously known to our cardiology practice. He was recently admitted to [facility] for inpatient rehab after an extended hospitalization at [facility] for septic arthritis. While at the long-term his medications were changed and he was given Lasix instead of Bumex. With this change he notes that he started retaining fluid and gained approximately 20 pounds. Over the last few days he is also noticed some orthopnea and some chest heaviness with deep inhalation. Otherwise he denies chest pain, palpitations, lightheadedness, dizziness or syncope. He has been compliant with his medications, diet and CPAP. 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 Allergies Allergy/AdvReac Type Severity Reaction Status Date / Time No Known Allergies Allergy Verified 03/06/21 01:34 Home Medications Medication Instructions Recorded Confirmed Type acetaminophen 325 mg capsule 650 mg PO Q6H 02/15/21 03/06/21 History (Tylenol) cyclobenzaprine 10 mg tablet 10 mg PO TID 02/15/21 03/06/21 History diclofenac sodium 1 % topical gel 4 g TOPICAL TID 02/15/21 03/06/21 History magnesium hydroxide 400 mg/5 mL 30 ml PO UD PRN 02/15/21 03/06/21 History oral suspension (Milk of Magnesia) oxycodone 10 mg tablet 10 mg PO Q6H 02/15/21 03/06/21 History pramipexole 0.5 mg tablet (Mirapex) 0.5 mg PO HS 02/15/21 03/06/21 History pregabalin 100 mg capsule (Lyrica) 100 mg PO BID 02/15/21 03/06/21 History sulfasalazine 500 mg 1 g PO BID 02/15/21 03/06/21 History tablet,delayed release acetaminophen 325 mg tablet 650 mg PO Q6H PRN 03/06/21 03/06/21 History (Tylenol) aspirin 81 mg tablet,delayed 81 mg PO DAILY 03/06/21 03/06/21 History release bisacodyl 5 mg tablet,delayed 5 mg PO DAILY 03/06/21 03/06/21 History release citalopram 20 mg tablet (Celexa) 20 mg PO DAILY 03/06/21 03/06/21 History ferrous sulfate 325 mg (65 mg 325 mg PO DAILY 03/06/21 03/06/21 History iron) tablet fluticasone propionate 50 2 spray INTRANASAL HS 03/06/21 03/06/21 History mcg/actuation nasal spray,suspension furosemide 20 mg tablet (Lasix) 20 mg PO DAILY 03/06/21 03/06/21 History irbesartan 300 mg tablet 300 mg PO DAILY 03/06/21 03/06/21 History lamotrigine 200 mg tablet 400 mg PO DAILY 03/06/21 03/06/21 History (Lamictal) lansoprazole 30 mg capsule,delayed 30 mg PO DAILYBB 03/06/21 03/06/21 History release ondansetron HCl 4 mg tablet 4 mg PO Q6H PRN 03/06/21 03/06/21 History (Zofran) polyethylene glycol 3350 17 17 g PO DAILY PRN 03/06/21 03/06/21 History gram/dose oral powder (Miralax) Patient History Medical History (Updated 03/06/21 @ 10:17 by Jeremy Valerio DO) Anxiety disorder Cellulitis Delirium Hypertension Obesity Obstructive sleep apnea Restless leg syndrome Sepsis Septic joint of right knee joint Social History Smoking Status: Current some day smoker Tobacco Type: Pipe Second Hand Exposure: Yes; Do You Dip or Chew Tobacco: No; Tobacco Cessation Education Requested by Patient: No Hx Alcohol Use: Yes (has not had alcohol in a year and a half) Hx Substance Use: No Preferred Language: Slovenian Communication Ability: Effective Relations Specialist Required: No Beliefs That Will Affect Care: None Current Living Situation: Significant Other Other Information That Helps Us Care for You: No Feels Safe at Home: Yes Safety Concerns: Feels Safe At This Time Assistive Devices: BiPap Review of Systems Review of Systems: All systems reviewed & are unremarkable except as noted in HPI & below Physical Exam Physical Exam: Physical Exam: General: Awake, alert and oriented x 3. No acute distress. Morbidly obese. HEENT: Normocephalic, atraumatic. Pupils equal, round and reactive to light and accommodation. Extraocular muscles are intact. Anicteric sclera. Moist mucous membranes. Neck: No JVD. No bruit. Cardiovascular: Regular but distant unable appreciate murmurs rubs or gallops Pulmonary: Clear to auscultation bilaterally. No rales, rhonchi, or wheezing. Abdomen: Bowel sounds x 4, soft. No rebound, guarding or tenderness. No organomegaly. Extremities: No clubbing, cyanosis or edema. +2 pedal pulses bilaterally. Skin: Warm and dry. Results & Data ([facility]) Vital Signs (Past 12 Hours) Vital Signs Temp Pulse Pulse Resp BP BP Pulse Ox 03/06/21 09:00 83 22 172/98 H 97 03/06/21 06:30 87 16 156/80 H 98 03/06/21 06:00 94 H 23 166/98 H 99 03/06/21 05:30 87 16 161/99 H 96 03/06/21 05:00 86 16 136/88 97 03/06/21 04:30 86 13 168/89 H 98 03/06/21 04:00 92 H 16 152/95 H 95 03/06/21 03:30 86 17 163/88 H 100 03/06/21 03:00 90 19 143/89 H 98 03/06/21 02:30 81 15 98 03/06/21 02:10 85 15 99 03/06/21 02:00 85 17 98 03/06/21 01:38 83 03/06/21 01:30 85 15 193/100 H 98 03/06/21 01:14 98 03/06/21 01:04 88 182/89 H 98 03/06/21 01:00 85 17 186/85 H 97 03/06/21 00:57 37.1 C 88 182/89 H 98 03/06/21 00:54 87 18 182/89 H 96 (1) Hypertension Hypertension type: primary hypertension Qualified Code(s): I10 - Essential (primary) hypertension
[2021-03-06] MEDS: ENOXAPARIN INJ 40 MG/0.4 ML SYR SQ SCH (10:44)
[2021-03-06] MEDS: PREGABALIN 100 MG CAP PO SCH ×2 (10:44→20:41)
[2021-03-06] MEDS: lamoTRIgine 100 MG TAB PO SCH (10:45)
[2021-03-06] MEDS: POTASSIUM CHLORIDE CRTAB 20 MEQ TABCR PO SCH ×2 (10:45→20:42)
[2021-03-06] MEDS: ASPIRIN 81 MG ECTAB PO SCH (10:45)
[2021-03-06] MEDS: CITALOPRAM 20 MG TAB PO SCH (10:46)
[2021-03-06] MEDS: CYCLOBENZAPRINE HCL 10 MG TAB PO SCH ×2 (10:46→16:42)
[2021-03-06] MEDS: FERROUS SULFATE 325 MG TAB PO SCH (10:46)
[2021-03-06] MEDS: ACETAMINOPHEN 325 MG TAB PO SCH ×3 (10:46→20:41)
[2021-03-06] MEDS: BUMETANIDE 2 MG in SYRINGE 0 ML IV SCH ×2 (10:49→16:41)
[2021-03-06] MEDS: DICLOFENAC SOD 1% GEL 100 GM TUBE EXT SCH ×3 (10:49→20:42)
[2021-03-06] MEDS: oxyCODONE HCL IR 5 MG TAB (IMMEDIATE RELEASE) PO SCH ×2 (11:00→16:38)
[2021-03-06] MEDS: METOPROLOL SUCC 25MG EXT REL TAB PO SCH (14:15)
[2021-03-06] MEDS: sulfaSALAzine 500 MG TABEC PO SCH ×2 (14:42→20:42)
[2021-03-06] MEDS: bisacodyL 5 MG TABEC PO SCH (16:38)
--- NOTE | 2021-03-06 18:22 | Hospitalist Progress Note ---
Date of Service March 06, 2021 Assessment & Plan (1) Decompensated heart failure: Plan: Present on admission with worsening SOB, weight gain of almost 20 pounds and b/l LE edema CXR showed no evidence of pleural effusion or pneumothorax. Mostly secondary to medication change Received IV Bumex 2mg on admission Echo grossly unremarkable with normal Biventricular function Cardiology on board Recommended to continue diuresis with IV bumex Continue monitor BMP while on IV lasix Chest pain Mostly related to acute CHF exacerbation Troponin x 2 negative ELKG showed no ischemic changes Continue aspirin and metoprolol ABNER Continue Cpap Chronic pain due to RA Continue narcotics and sulfasalazine, stable Hyperglycemia Most recent hba1c 5 on 03/06/21 Continue monitor BS DVT px on Lovenox Code status full code Admission and Anticipated Discharge Date Admission Date: March 06, 2021 Subjective Pt was seen and examined for follow up of worsening SOB Lying in bed with no acute distress Pt said that his breathing is much better today Denies any chest pain, palpitation, dizziness and SOB Review of Systems Review of Systems: All systems reviewed & are unremarkable except as noted in Subjective Physical Exam Physical Exam: General- No acute distress, obese Head- atraumatic Eyes- PERRL, EOMI, ENT- oropharynx clear Neck- supple, no JVD Lungs- Diminished BS Heart- regular rhythm; no murmur Abdomen- normal bowel sounds, soft, nontender Extremities- no calf tenderness, +edema Neuro- alert, oriented x 3; PERRL, EOMI; no facial palsy; no dysarthria Skin- warm & dry Results & Data Results & Data ([facility]) Vital Signs (Past 12 Hours) Vital Signs Temp Pulse Pulse Resp BP BP Pulse Ox 03/06/21 16:11 37.0 C 89 21 144/75 H 94 03/06/21 15:00 80 03/06/21 12:17 37.1 C 89 23 171/80 H 95 03/06/21 09:10 86 83 22 172/98 H 97 03/06/21 09:00 83 22 172/98 H 97 03/06/21 06:30 87 16 156/80 H 98
--- NOTE | 2021-03-06 18:26 | Electrocardiogram Report ---
Test Reason : Blood Pressure : / mmHG Vent. Rate : 088 BPM Atrial Rate : 088 BPM P-R Int : 168 ms QRS Dur : 128 ms QT Int : 396 ms P-R-T Axes : 064 012 029 degrees QTc Int : 479 ms Sinus rhythm with Premature atrial complexes Right bundle branch block Abnormal ECG No previous ECGs available Confirmed by Scott Mendez ([id number]) on 03/06/2021 6:26:17 PM Referred By: Shaq Trammell Confirmed By:Matty Mendez
[2021-03-06] MEDS: PRAMIPEXOLE DIHYDROCHLO 0.5 MG TAB PO SCH (20:41)
[2021-03-06] MEDS: FLUTICASONE PROPIONATE NA SPR 16 GM BTL SCH (20:43)
[2021-03-06] MEDS ORDERED: METOPROLOL TARTRATE 25 MG TAB PO SCH (21:00)
[2021-03-07] MEDS: oxyCODONE HCL IR 5 MG TAB (IMMEDIATE RELEASE) PO SCH ×4 (00:28→17:06)
[2021-03-07] MEDS: CYCLOBENZAPRINE HCL 10 MG TAB PO SCH ×3 (00:28→17:06)
[2021-03-07] MEDS: ACETAMINOPHEN 325 MG TAB PO SCH ×4 (04:07→22:43)
[2021-03-07] MEDS: PANTOprazole 40 MG TAB PO SCH (04:07)
[2021-03-07 06:30] LABS: Basophils # (auto) 0.01 K/uL (0-0.2); Basophils % (auto) 0.2 %; Eosinophils # (auto) 0.14 K/uL (0-0.5); Eosinophils % (auto) 2.5 %; Hematocrit (blood only) 33.5 % (42-52); Hemoglobin 10.9 g/dL (14.0-18.0); Immature Granulocytes # (auto) 0.05 K/uL (0.00-0.02); Immature Granulocytes % (auto) 0.9 %; Lymphocytes # (auto) 1.18 K/uL (1.2-3.4); Lymphocytes % (auto) 21.3 %; Mean Corpuscular Hemoglobin 30.1 pg (25-34); Mean Corpuscular Hgb Conc 32.5 g/dL (32-36); Mean Corpuscular Volume 92.5 fL (80-100); Mean Platelet Volume 10.2 fL (7.4-10.4); Monocytes % (auto) 12.6 %; Neutrophils # (auto) 3.46 K/uL (1.4-6.5); Neutrophils % (auto) 62.5 %; Platelet Count 142 K/uL (130-400); RDW Coefficient of Variation 17.1 % (11.5-14.5); RDW Standard Deviation 57.2 fL (36.4-46.3); Red Blood Count 3.62 M/uL (4.7-6.1); White Blood Count 5.54 K/uL (4.8-10.8)
[2021-03-07 07:07] LABS: BUN Creatinine Ratio 21.9 (10-20); Creatinine Clr Calc Pharmacy 214.8 ml/min; Est GFR (African American) 113.5 ml/min
[2021-03-07] MEDS: IRBESARTAN 150 MG TAB PO SCH (08:54)
[2021-03-07] MEDS: sulfaSALAzine 500 MG TABEC PO SCH ×2 (08:54→20:03)
[2021-03-07] MEDS: ASPIRIN 81 MG ECTAB PO SCH (08:54)
[2021-03-07] MEDS: CITALOPRAM 20 MG TAB PO SCH (08:55)
[2021-03-07] MEDS: lamoTRIgine 100 MG TAB PO SCH (08:55)
[2021-03-07] MEDS: FERROUS SULFATE 325 MG TAB PO SCH (08:55)
[2021-03-07] MEDS: POTASSIUM CHLORIDE CRTAB 20 MEQ TABCR PO SCH ×2 (08:55→20:00)
[2021-03-07] MEDS: METOPROLOL SUCC 25MG EXT REL TAB PO SCH (08:55)
[2021-03-07] MEDS: DICLOFENAC SOD 1% GEL 100 GM TUBE EXT SCH ×3 (08:56→20:01)
[2021-03-07] MEDS: bisacodyL 5 MG TABEC PO SCH (08:56)
[2021-03-07] MEDS: ENOXAPARIN INJ 40 MG/0.4 ML SYR SQ SCH (08:59)
[2021-03-07] MEDS: BUMETANIDE 2 MG in SYRINGE 0 ML IV SCH ×2 (09:05→17:07)
[2021-03-07] MEDS: PREGABALIN 100 MG CAP PO SCH ×2 (09:05→20:04)
--- NOTE | 2021-03-07 10:00 | Cardiology Progress Note ---
Date of Service March 07, 2021 Assessment & Plan (1) Decompensated heart failure: (2) Bilateral edema of lower extremity: (3) Hypertension: Plan: Acute decompensated diastolic heart failure secondary to medication change. Echo grossly unremarkable with normal Biventricular function impressive diuresis with IV bumex will give one more dose of IV this afternoon than transition to po in AM tolerating all other med adjustments well, no other changes at this time likely d/c in AM Admission and Anticipated Discharge Date Admission Date: March 06, 2021 Subjective Pt seen and examined, chart reviewed. States that he's feeling much better today. Diuresed over 9L in 24 hours. States breathing is almost back to baseline and lower extremity edema close to baseline. No orthopnea. Tele reviewed: sinus rhythm without arrhythmia or significant ectopy. Review of Systems Review of Systems: All systems reviewed & are unremarkable except as noted in HPI & below Physical Exam Physical Exam: Physical Exam: General: Awake, alert and oriented x 3. No acute distress. Morbidly obese. HEENT: Normocephalic, atraumatic. Pupils equal, round and reactive to light and accommodation. Extraocular muscles are intact. Anicteric sclera. Moist mucous membranes. Neck: No JVD. No bruit. Cardiovascular: Regular but distant unable appreciate murmurs rubs or gallops Pulmonary: Clear to auscultation bilaterally. No rales, rhonchi, or wheezing. Abdomen: Bowel sounds x 4, soft. No rebound, guarding or tenderness. No organomegaly. Extremities: No clubbing, cyanosis or edema. +2 pedal pulses bilaterally. Skin: Warm and dry. Results & Data ([facility]) Vital Signs (Past 12 Hours) Vital Signs Temp Pulse Pulse Resp BP BP Pulse Ox 03/07/21 07:33 36.7 C 68 20 143/80 H 94 03/07/21 04:02 36.6 C 68 20 160/75 H 96 03/06/21 23:30 80 19 98 03/06/21 23:23 80 03/06/21 23:02 36.6 C 80 19 171/74 H 95 (1) Hypertension Hypertension type: primary hypertension Qualified Code(s): I10 - Essential (primary) hypertension
--- NOTE | 2021-03-07 17:59 | Electrocardiogram Report ---
Test Reason : Blood Pressure : / mmHG Vent. Rate : 068 BPM Atrial Rate : 068 BPM P-R Int : 176 ms QRS Dur : 138 ms QT Int : 434 ms P-R-T Axes : 064 000 023 degrees QTc Int : 461 ms Normal sinus rhythm Right bundle branch block Inferior infarct , age undetermined Abnormal ECG When compared with ECG of 06-MAR-2021 00:55, Premature atrial complexes are no longer Present Inferior infarct is now Present Confirmed by Scott Mendez ([id number]) on 03/07/2021 5:59:16 PM Referred By: Shaq Kapoornoreen Confirmed By:Matty Mendez
[2021-03-07] MEDS: FLUTICASONE PROPIONATE NA SPR 16 GM BTL SCH (19:59)
[2021-03-07] MEDS: PRAMIPEXOLE DIHYDROCHLO 0.5 MG TAB PO SCH (20:01)
[2021-03-07] MEDS: TERAZOSIN HCL 1 MG CAP PO SCH (20:03)
--- NOTE | 2021-03-07 21:44 | Hospitalist Progress Note ---
Date of Service March 07, 2021 Assessment & Plan (1) Decompensated heart failure: Plan: Present on admission with worsening SOB, weight gain of almost 20 pounds and b/l LE edema CXR showed no evidence of pleural effusion or pneumothorax. Mostly secondary to medication change Received IV Bumex 2mg on admission Echo grossly unremarkable with normal Biventricular function Cardiology on board Patient has been diuresing well and plan to transition to p.o. Bumex Continue monitor BMP Clinically stable Chest pain Mostly related to acute CHF exacerbation Troponin x 2 negative ELKG showed no ischemic changes Continue aspirin and metoprolol ABNER Continue Cpap Chronic pain due to RA Continue narcotics and sulfasalazine, stable Hyperglycemia Most recent hba1c 5 on 03/06/21 Continue monitor BS DVT px on Lovenox Code status full code Disposition Plan to discharge home tomorrow Admission and Anticipated Discharge Date Admission Date: March 06, 2021 Subjective Patient was seen and examined follow-up of shortness of breath Lying in bed with no acute respiratory distress He has been diuresing very well Denies any chest pain, palpitation, dizziness, shortness of breath. Physical Exam Physical Exam: General- No acute distress, obese Head- atraumatic Eyes- PERRL, EOMI, ENT- oropharynx clear Neck- supple, no JVD Lungs- Diminished BS Heart- regular rhythm; no murmur Abdomen- normal bowel sounds, soft, nontender Extremities- no calf tenderness, +edema Neuro- alert, oriented x 3; PERRL, EOMI; no facial palsy; no dysarthria Skin- warm & dry Results & Data Results & Data ([facility]) Vital Signs (Past 12 Hours) Vital Signs Temp Pulse Pulse Resp BP Pulse Ox 03/07/21 20:07 37.0 C 75 18 154/71 H 95 03/07/21 15:41 36.9 C 75 20 130/80 92 03/07/21 11:00 37.1 C 77 18 134/75 94 03/07/21 10:27 80
[2021-03-08] MEDS: oxyCODONE HCL IR 5 MG TAB (IMMEDIATE RELEASE) PO SCH ×4 (00:33→17:16)
[2021-03-08] MEDS: CYCLOBENZAPRINE HCL 10 MG TAB PO SCH ×3 (00:33→15:45)
[2021-03-08] MEDS: PANTOprazole 40 MG TAB PO SCH (05:42)
[2021-03-08] MEDS: ACETAMINOPHEN 325 MG TAB PO SCH ×4 (05:42→20:43)
[2021-03-08 07:13] LABS: BUN Creatinine Ratio 24.4 (10-20); Calcium 8.9 mg/dl (8.5-10.1); Est GFR (African American) 110.3 ml/min; Est GFR (Non-African American) 95.1 ml/min; Potassium 4.1 mmol/L (3.5-5.1)
[2021-03-08] MEDS: ASPIRIN 81 MG ECTAB PO SCH (08:04)
[2021-03-08] MEDS: CITALOPRAM 20 MG TAB PO SCH (08:04)
[2021-03-08] MEDS: lamoTRIgine 100 MG TAB PO SCH (08:04)
[2021-03-08] MEDS: FERROUS SULFATE 325 MG TAB PO SCH (08:04)
[2021-03-08] MEDS: METOPROLOL SUCC 25MG EXT REL TAB PO SCH (08:04)
[2021-03-08] MEDS: BUMETANIDE 1 MG TAB PO SCH (08:05)
[2021-03-08] MEDS: POTASSIUM CHLORIDE CRTAB 20 MEQ TABCR PO SCH ×2 (08:05→20:41)
[2021-03-08] MEDS: IRBESARTAN 150 MG TAB PO SCH (08:05)
[2021-03-08] MEDS: ENOXAPARIN INJ 40 MG/0.4 ML SYR SQ SCH (08:06)
[2021-03-08] MEDS: DICLOFENAC SOD 1% GEL 100 GM TUBE EXT SCH ×3 (08:06→19:12)
[2021-03-08] MEDS: sulfaSALAzine 500 MG TABEC PO SCH ×2 (08:06→20:43)
[2021-03-08] MEDS: bisacodyL 5 MG TABEC PO SCH (08:14)
[2021-03-08] MEDS: PREGABALIN 100 MG CAP PO SCH ×2 (08:14→20:40)
--- NOTE | 2021-03-08 13:17 | Cardiology Progress Note ---
Date of Service March 08, 2021 Assessment & Plan (1) Decompensated heart failure: (2) Bilateral edema of lower extremity: (3) Hypertension: Plan: Acute decompensated diastolic heart failure secondary to medication change. Echo grossly unremarkable with normal Biventricular function Down 35 pounds since admission with 16 L diuresis. Already transition to oral Bumex. Anticipate discharge on Bumex 1 mg p.o. every morning with an afternoon dose as needed. Okay to DC telemetry. Okay to transfer once facility is able to accept. Admission and Anticipated Discharge Date Admission Date: March 06, 2021 Subjective Patient seen and examined, chart reviewed. States that he feels great today. Slept well with CPAP last night and notes that edema has all but resolved. Denies chest pain, shortness of breath, palpitations, lightheadedness, dizziness or syncope. Telemetry reviewed:Normal sinus rhythm without arrhythmia or significant ectopy. Review of Systems Review of Systems: All systems reviewed & are unremarkable except as noted in HPI & below Physical Exam Physical Exam: Physical Exam: General: Awake, alert and oriented x 3. No acute distress. Morbidly obese. HEENT: Normocephalic, atraumatic. Pupils equal, round and reactive to light and accommodation. Extraocular muscles are intact. Anicteric sclera. Moist mucous membranes. Neck: No JVD. No bruit. Cardiovascular: Regular but distant unable appreciate murmurs rubs or gallops Pulmonary: Clear to auscultation bilaterally. No rales, rhonchi, or wheezing. Abdomen: Bowel sounds x 4, soft. No rebound, guarding or tenderness. No organomegaly. Extremities: No clubbing, cyanosis or edema. +2 pedal pulses bilaterally. Skin: Warm and dry. Results & Data ([facility]) Vital Signs (Past 12 Hours) Vital Signs Temp Pulse Pulse Resp BP Pulse Ox 03/08/21 10:41 36.7 C 80 19 134/73 97 03/08/21 09:41 64 03/08/21 07:24 36.8 C 81 18 138/81 92 03/08/21 03:36 36.3 C L 68 17 171/74 H 97 (1) Hypertension Hypertension type: primary hypertension Qualified Code(s): I10 - Essential (primary) hypertension
--- NOTE | 2021-03-08 17:48 | Hospitalist Progress Note ---
Date of Service March 08, 2021 Assessment & Plan (1) Decompensated heart failure: Plan: Present on admission with worsening SOB, weight gain of almost 20 pounds and b/l LE edema CXR showed no evidence of pleural effusion or pneumothorax. Mostly secondary to medication change Received IV Bumex 2mg on admission Echo grossly unremarkable with normal Biventricular function Cardiology on board Patient has been diuresing well and plan to transition to p.o. Bumex Continue Bumex 1mg daily Continue monitor BMP Clinically stable Chest pain Mostly related to acute CHF exacerbation Troponin x 2 negative EKG showed no ischemic changes Continue aspirin and metoprolol ABNER Continue Cpap Chronic pain due to RA Continue narcotics and sulfasalazine, stable Hyperglycemia Most recent hba1c 5 on 03/06/21 Continue monitor BS DVT px on Lovenox Code status full code Disposition Waiting for placement to discharge Admission and Anticipated Discharge Date Admission Date: March 06, 2021 Subjective Patient was seen and examined follow-up of shortness of breath Lying in bed with no acute respiratory distress He has been diuresing very well with net output 16L Denies any chest pain, palpitation, dizziness, shortness of breath. Review of Systems Review of Systems: All systems reviewed & are unremarkable except as noted in Subjective Physical Exam Physical Exam: General- No acute distress, obese Head- atraumatic Eyes- PERRL, EOMI, ENT- oropharynx clear Neck- supple, no JVD Lungs- Diminished BS Heart- regular rhythm; no murmur Abdomen- normal bowel sounds, soft, nontender Extremities- no calf tenderness, +trace edema Neuro- alert, oriented x 3; PERRL, EOMI; no facial palsy; no dysarthria Skin- warm & dry Results & Data Results & Data ([facility]) Vital Signs (Past 12 Hours) Vital Signs Temp Pulse Pulse Resp BP Pulse Ox 03/08/21 15:30 37.1 C 69 19 134/82 98 03/08/21 10:41 36.7 C 80 19 134/73 97 03/08/21 09:41 64 03/08/21 07:24 36.8 C 81 18 138/81 92
[2021-03-08] MEDS: FLUTICASONE PROPIONATE NA SPR 16 GM BTL SCH (20:41)
[2021-03-08] MEDS: PRAMIPEXOLE DIHYDROCHLO 0.5 MG TAB PO SCH (20:42)
[2021-03-08] MEDS: TERAZOSIN HCL 1 MG CAP PO SCH (20:42)
[2021-03-09] MEDS: CYCLOBENZAPRINE HCL 10 MG TAB PO SCH ×3 (00:42→15:06)
[2021-03-09] MEDS: oxyCODONE HCL IR 5 MG TAB (IMMEDIATE RELEASE) PO SCH ×4 (00:43→18:26)
[2021-03-09] MEDS ORDERED: MICONAZOLE NITRATE POWDER 43 GM EXT PRN (04:42)
[2021-03-09] MEDS: ACETAMINOPHEN 325 MG TAB PO SCH ×4 (05:20→21:35)
[2021-03-09] MEDS: PANTOprazole 40 MG TAB PO SCH (05:20)
[2021-03-09 06:50] LABS: BUN Creatinine Ratio 31.8 (10-20); Calcium 8.3 mg/dl (8.5-10.1); Creatinine Clr Calc Pharmacy 215.8 ml/min; Est GFR (African American) 114.7 ml/min
[2021-03-09] MEDS: lamoTRIgine 100 MG TAB PO SCH (08:29)
[2021-03-09] MEDS: sulfaSALAzine 500 MG TABEC PO SCH ×2 (08:29→21:35)
[2021-03-09] MEDS: ASPIRIN 81 MG ECTAB PO SCH (08:29)
[2021-03-09] MEDS: IRBESARTAN 150 MG TAB PO SCH (08:29)
[2021-03-09] MEDS: POTASSIUM CHLORIDE CRTAB 20 MEQ TABCR PO SCH ×2 (08:29→21:35)
[2021-03-09] MEDS: CITALOPRAM 20 MG TAB PO SCH (08:30)
[2021-03-09] MEDS: FERROUS SULFATE 325 MG TAB PO SCH (08:30)
[2021-03-09] MEDS: ENOXAPARIN INJ 40 MG/0.4 ML SYR SQ SCH (08:30)
[2021-03-09] MEDS: METOPROLOL SUCC 25MG EXT REL TAB PO SCH (08:30)
[2021-03-09] MEDS: BUMETANIDE 1 MG TAB PO SCH (08:30)
[2021-03-09] MEDS: DICLOFENAC SOD 1% GEL 100 GM TUBE EXT SCH ×3 (08:30→20:58)
[2021-03-09] MEDS: bisacodyL 5 MG TABEC PO SCH (08:37)
[2021-03-09] MEDS: PREGABALIN 100 MG CAP PO SCH ×2 (08:37→21:35)
--- NOTE | 2021-03-09 08:47 | Cardiology Progress Note ---
Date of Service March 09, 2021 Assessment & Plan (1) Decompensated heart failure: (2) Bilateral edema of lower extremity: (3) Hypertension: Plan: Acute decompensated diastolic heart failure secondary to medication change. Echo grossly unremarkable with normal Biventricular function 19 L diuresis since admit Already transition to oral Bumex. Anticipate discharge on Bumex 1 mg p.o. every morning with an afternoon dose as needed. Okay to DC telemetry. Okay to transfer once facility is able to accept. Admission and Anticipated Discharge Date Admission Date: March 06, 2021 Subjective Pt seen and examined, chart reviewed. Feels well with continued diuresis. SOB resolved. Review of Systems Review of Systems: All systems reviewed & are unremarkable except as noted in HPI & below Physical Exam Physical Exam: Physical Exam: General: Awake, alert and oriented x 3. No acute distress. Morbidly obese. HEENT: Normocephalic, atraumatic. Pupils equal, round and reactive to light and accommodation. Extraocular muscles are intact. Anicteric sclera. Moist mucous membranes. Neck: No JVD. No bruit. Cardiovascular: Regular but distant unable appreciate murmurs rubs or gallops Pulmonary: Clear to auscultation bilaterally. No rales, rhonchi, or wheezing. Abdomen: Bowel sounds x 4, soft. No rebound, guarding or tenderness. No organomegaly. Extremities: No clubbing, cyanosis or edema. +2 pedal pulses bilaterally. Skin: Warm and dry. Results & Data ([facility]) Vital Signs (Past 12 Hours) Vital Signs Temp Pulse Resp BP Pulse Ox 03/09/21 08:09 36.7 C 85 18 122/67 96 03/09/21 05:31 36.5 C 75 18 150/75 H 98 03/08/21 22:40 36.7 C 77 19 120/71 94 (1) Hypertension Hypertension type: primary hypertension Qualified Code(s): I10 - Essential (primary) hypertension
[2021-03-09] MEDS: FLUTICASONE PROPIONATE NA SPR 16 GM BTL SCH (20:58)
[2021-03-09] MEDS: TERAZOSIN HCL 1 MG CAP PO SCH (21:35)
[2021-03-09] MEDS: PRAMIPEXOLE DIHYDROCHLO 0.5 MG TAB PO SCH (21:35)
--- NOTE | 2021-03-09 22:39 | Hospitalist Progress Note ---
Date of Service March 09, 2021 Assessment & Plan (1) Decompensated heart failure: Plan: Present on admission with worsening SOB, weight gain of almost 20 pounds and b/l LE edema CXR showed no evidence of pleural effusion or pneumothorax. Mostly secondary to medication change Received IV Bumex 2mg on admission Echo grossly unremarkable with normal Biventricular function Cardiology on board Patient has been diuresing well and plan to transition to p.o. Bumex Continue Bumex 1mg daily with afternoon dose prn if needed Continue monitor BMP Clinically stable Chest pain Mostly related to acute CHF exacerbation Troponin x 2 negative EKG showed no ischemic changes Continue aspirin and metoprolol ABNER Continue Cpap Chronic pain due to RA Continue narcotics and sulfasalazine, stable Hyperglycemia Most recent hba1c 5 on 03/06/21 Continue monitor BS DVT px on Lovenox Code status full code Disposition Waiting for placement to discharge Admission and Anticipated Discharge Date Admission Date: March 06, 2021 Subjective Patient was seen and examined follow-up of shortness of breath Lying in bed with no acute respiratory distress Patient said that his breathing feels much better Denies any chest pain, palpitation, dizziness, shortness of breath. Review of Systems Review of Systems: All systems reviewed & are unremarkable except as noted in Subjective Physical Exam Physical Exam: General- No acute distress, obese Head- atraumatic Eyes- PERRL, EOMI, ENT- oropharynx clear Neck- supple, no JVD Lungs- Diminished BS Heart- regular rhythm; no murmur Abdomen- normal bowel sounds, soft, nontender Extremities- no calf tenderness, +trace edema Neuro- alert, oriented x 3; PERRL, EOMI; no facial palsy; no dysarthria Skin- warm & dry Results & Data Results & Data ([facility]) Vital Signs (Past 12 Hours) Vital Signs Temp Pulse Resp BP Pulse Ox 03/09/21 16:05 36.8 C 85 20 136/82 95 03/09/21 15:37 36.8 C 85 20 141/85 H 96 03/09/21 11:51 36.5 C 75 16 146/80 H
[2021-03-10] MEDS: oxyCODONE HCL IR 5 MG TAB (IMMEDIATE RELEASE) PO SCH ×4 (01:01→18:43)
[2021-03-10] MEDS: CYCLOBENZAPRINE HCL 10 MG TAB PO SCH ×3 (01:01→15:36)
[2021-03-10] MEDS: ACETAMINOPHEN 325 MG TAB PO SCH ×4 (03:32→20:26)
[2021-03-10] MEDS: PANTOprazole 40 MG TAB PO SCH (06:21)
[2021-03-10] MEDS: DICLOFENAC SOD 1% GEL 100 GM TUBE EXT SCH ×3 (07:29→20:25)
[2021-03-10 07:40] LABS: BUN Creatinine Ratio 37.6 (10-20); Calcium 8.4 mg/dl (8.5-10.1); Creatinine Clr Calc Pharmacy 205.4 ml/min; Est GFR (African American) 112.4 ml/min; Potassium 4.1 mmol/L (3.5-5.1)
[2021-03-10] MEDS: CITALOPRAM 20 MG TAB PO SCH (08:21)
[2021-03-10] MEDS: FERROUS SULFATE 325 MG TAB PO SCH (08:21)
[2021-03-10] MEDS: sulfaSALAzine 500 MG TABEC PO SCH ×2 (08:22→20:28)
[2021-03-10] MEDS: ASPIRIN 81 MG ECTAB PO SCH (08:22)
[2021-03-10] MEDS: IRBESARTAN 150 MG TAB PO SCH (08:22)
[2021-03-10] MEDS: lamoTRIgine 100 MG TAB PO SCH (08:22)
[2021-03-10] MEDS: BUMETANIDE 1 MG TAB PO SCH (08:23)
[2021-03-10] MEDS: ENOXAPARIN INJ 40 MG/0.4 ML SYR SQ SCH (08:23)
[2021-03-10] MEDS: METOPROLOL SUCC 25MG EXT REL TAB PO SCH (08:23)
[2021-03-10] MEDS: PREGABALIN 100 MG CAP PO SCH ×2 (08:25→20:26)
[2021-03-10] MEDS: bisacodyL 5 MG TABEC PO SCH (08:25)
[2021-03-10] MEDS: POTASSIUM CHLORIDE CRTAB 20 MEQ TABCR PO SCH ×2 (08:26→20:26)
[2021-03-10] MEDS: FLUTICASONE PROPIONATE NA SPR 16 GM BTL SCH (20:25)
[2021-03-10] MEDS: TERAZOSIN HCL 1 MG CAP PO SCH (20:27)
[2021-03-10] MEDS: PRAMIPEXOLE DIHYDROCHLO 0.5 MG TAB PO SCH (20:28)
--- NOTE | 2021-03-10 23:21 | Hospitalist Progress Note ---
Date of Service March 10, 2021 Assessment & Plan (1) Decompensated heart failure: Plan: Present on admission with worsening SOB, weight gain of almost 20 pounds and b/l LE edema CXR showed no evidence of pleural effusion or pneumothorax. Mostly secondary to medication change Received IV Bumex 2mg on admission Echo grossly unremarkable with normal Biventricular function Cardiology on board Patient has been diuresing well and plan to transition to p.o. Bumex Continue Bumex 1mg daily with afternoon dose prn if needed Continue monitor BMP Clinically stable Chest pain Mostly related to acute CHF exacerbation Troponin x 2 negative EKG showed no ischemic changes Continue aspirin and metoprolol ABNER Continue Cpap Chronic pain due to RA Continue narcotics and sulfasalazine, stable Hyperglycemia Most recent hba1c 5 on 03/06/21 Continue monitor BS DVT px on Lovenox Code status full code Disposition Waiting for placement to discharge Admission and Anticipated Discharge Date Admission Date: March 06, 2021 Subjective Patient was seen and examined follow-up of shortness of breath Lying in bed with no acute respiratory distress Patient said that his breathing feels much better waiting for placement to rehab Denies any chest pain, palpitation, dizziness, shortness of breath. Review of Systems Review of Systems: All systems reviewed & are unremarkable except as noted in Subjective Physical Exam Physical Exam: General- No acute distress, obese Head- atraumatic Eyes- PERRL, EOMI, ENT- oropharynx clear Neck- supple, no JVD Lungs- Diminished BS Heart- regular rhythm; no murmur Abdomen- normal bowel sounds, soft, nontender Extremities- no calf tenderness, +trace edema Neuro- alert, oriented x 3; PERRL, EOMI; no facial palsy; no dysarthria Skin- warm & dry Results & Data Results & Data ([facility]) Vital Signs (Past 12 Hours) Vital Signs Temp Pulse Resp BP Pulse Ox 03/10/21 16:13 36.7 C 74 18 134/84 96
[2021-03-11] MEDS: oxyCODONE HCL IR 5 MG TAB (IMMEDIATE RELEASE) PO SCH ×3 (00:20→11:23)
[2021-03-11] MEDS: CYCLOBENZAPRINE HCL 10 MG TAB PO SCH ×2 (00:20→08:51)
[2021-03-11] MEDS: ACETAMINOPHEN 325 MG TAB PO SCH ×2 (03:00→08:59)
[2021-03-11] MEDS: PANTOprazole 40 MG TAB PO SCH (05:45)
[2021-03-11] MEDS: ASPIRIN 81 MG ECTAB PO SCH (08:52)
[2021-03-11] MEDS: BUMETANIDE 1 MG TAB PO SCH (08:53)
[2021-03-11] MEDS: CITALOPRAM 20 MG TAB PO SCH (08:53)
[2021-03-11] MEDS: ENOXAPARIN INJ 40 MG/0.4 ML SYR SQ SCH (08:54)
[2021-03-11] MEDS: FERROUS SULFATE 325 MG TAB PO SCH (08:55)
[2021-03-11] MEDS: lamoTRIgine 100 MG TAB PO SCH (08:55)
[2021-03-11] MEDS: IRBESARTAN 150 MG TAB PO SCH (08:57)
[2021-03-11] MEDS: METOPROLOL SUCC 25MG EXT REL TAB PO SCH (08:58)
[2021-03-11] MEDS: POTASSIUM CHLORIDE CRTAB 20 MEQ TABCR PO SCH (08:58)
[2021-03-11] MEDS: sulfaSALAzine 500 MG TABEC PO SCH (09:00)
[2021-03-11] MEDS: PREGABALIN 100 MG CAP PO SCH (09:05)
[2021-03-11] MEDS: bisacodyL 5 MG TABEC PO SCH (09:05)
[2021-03-11] MEDS: DICLOFENAC SOD 1% GEL 100 GM TUBE EXT SCH (09:06)
--- NOTE | 2021-03-11 10:25 | Discharge Summary ---
Date of Service March 11, 2021 Admission HPI Per Admitting Provider History obtained from patient and records. Medical history significant for CHF, hypertension, ABNER on CPAP, mood disorder, RLS, chronic pain secondary to rheumatoid arthritis on narcotics and sulfasalazine, septic arthritis status post surgery/antibiotic Rx. Patient confined at [facility] for about a month from late November to December 2020 for septic arthritis (right knee and right wrist) status post surgery, antibiotic Rx. Patient subsequently transferred to [facility] following confinement. The last week, patient noted fluid retention/weight gain/leg swelling, shortness of breath with exertion. No cough symptoms. Patient being given daily Lasix at rehab facility in place of usual Bumex Rx. Patient relayed concerns about prior outpatient Bumex Rx to rehab facility provider but did not get any answers as per patient. Patient compliant with CPAP, denies dietary indiscretion, no OTC NSAID intake. Last night patient had transient achy left-sided chest pain going to the neck with some shortness of breath. Chest pain nonpleuritic. Patient brought to the ER for evaluation. SBP 180s upon arrival at the ER. Nitropaste and Lasix administered at the ER. Patient currently comfortable. Medical History as above Surgical History : Orthopedic procedures Family History : HTN Personal/Social history : Non-smoker, no EtOH intake, disabled Principal Diagnosis Decompensated heart failure Chest pain ABNER (Obstructive sleep apnea Hypertension Chronic pain due to RA Hyperglycemia Discharge Exam General- No acute distress, obese Head- atraumatic Eyes- PERRL, EOMI, ENT- oropharynx clear Neck- supple, no JVD Lungs- Diminished BS Heart- regular rhythm; no murmur Abdomen- normal bowel sounds, soft, nontender Extremities- no calf tenderness, +trace edema Neuro- alert, oriented x 3; PERRL, EOMI; no facial palsy; no dysarthria Skin- warm & dry Discharge Data Allergies Allergy/AdvReac Type Severity Reaction Status Date / Time No Known Allergies Allergy Verified 03/20/21 21:28 Consultations 03/06/21 03:54 ED Decision to Admit Stat 03/06/21 05:58 Consult Health Information Management Routine 03/06/21 09:21 Consult Cardiology Routine Ordered Studies INDICATION: [place] ^Chest Pain . TECHNIQUE: Single frontal radiograph of the chest was obtained. Comparison: None available at the time of this dictation. FINDINGS: Exam is limited by underpenetration. No lines and tubes are seen. Cardiomediastinal silhouette is prominent. The lungs are clear. No evidence of pleural effusion or pneumothorax. IMPRESSION: Limited exam without acute abnormality. ACT 112: Negative or not required by law. Electronically signed by: Justen Gregory M.D. 03/06/2021 7:30 AM Dictated: 03/06/21726Transcribed: 03/06/21726 Hospital Course (1) Decompensated heart failure: Present on admission with worsening SOB, weight gain of almost 20 pounds and b/l LE edema CXR showed no evidence of pleural effusion or pneumothorax. Mostly secondary to medication change Received IV Bumex 2mg on admission Echo grossly unremarkable with normal Biventricular function Cardiology on board Patient has been diuresing well and plan to transition to p.o. Bumex Continue Bumex 1mg daily with afternoon dose prn if needed Continue monitor BMP Clinically stable Chest pain Mostly related to acute CHF exacerbation Troponin x 2 negative EKG showed no ischemic changes Continue aspirin and metoprolol ABNER Continue Cpap HTN Continue IRbesartan, Terazosin, Metoprolol and Bumex Continue monitor your BP Chronic pain due to RA Continue narcotics and sulfasalazine, stable Hyperglycemia Most recent hba1c 5 on 03/06/21 Continue monitor BS DVT px on Lovenox Code status full code Disposition Transfer to [facility] today Total Time Total Time Spent Total Time Spent (In Minutes): 35 minutes Discharge Plan Discharge Items Patient Disposition: Transfer [facility] Reason For Visit: CHF Discharge Diagnosis: Decompensated heart failure Chest pain ABNER (Obstructive sleep apnea Hypertension Chronic pain due to RA Hyperglycemia Activity: Resume your previous activity Non-emergency contact: Primary Care Provider Call non-emergency contact if: you have any medication questions Follow-up/Referrals: Shaq Trammell [Primary Care Provider] - Diet: Heart Healthy Fluids: 2000ml (8 cups) Addtl Attending Provider Instructions: Follow up with your primary care provider at [facility] within 1 week Continue physical and occupational therapy Continue follow 2 Liters fluid restriction daily Check BMP in 1 week to monitor your electrolytes and renal function Fall precaution Continue monitor your blood pressure Continue Cpap machine at night Ok to take an extra dose of Bumex in the afternoon as needed if you develop any sign of fluid overload CHF Discharge Instructions Call your Primary Care doctor if any of the following symptoms or problems start or get worse: Shortness of breath or difficulty breathing Wake up at night short of breath Chest pain Cough Swelling of your hands, feet, or legs More fatigued or tired with your normal activity Palpitations - sudden fast heart beats WEIGHT Weigh yourself every morning after using the bathroom. Use the same scale. Wear the same amount of clothing. Write your weight down on a chart. Call your Primary Care doctor if you gain more than 2-3 pounds in 1-2 days. MEDICATIONS Use this discharge instruction sheet for medication instructions. Take your medications at the time your doctor ordered. Do not skip a dose of your medicines. If you miss a dose of medicine, take it as soon as possible, but DO NOT DOUBLE A DOSE. Read your medicine information when you get home. Know all of the side effects of your medicine. If in doubt, ask your pharmacist Call your Primary Care doctor's office if you have any side effects. Be sure all of your doctors know what medicine and herbs you take (including cold, flu, and herbal medicine). Take the following with you to your follow-up doctor appointments: Weight Chart Medication List List of questions Do not drink excessive alcohol, beer or wine. Pending Studies at Discharge: No Stand-Alone Forms: My [facility] Skilled Items Patient informed of condition?: Yes DNR: No Discharge Level of Care: Skilled Communicable Disease: No Discharge Prognosis: Stable Lines: None Urinary Catheter: No Medications and DC Order Prescriptions: New potassium chloride [Klor-Con M20] 20 mEq Tablet,Er Particles/Crystals 20 meq PO DAILY Qty: 30 RF: 0 bumetanide 1 mg Tablet 1 mg PO QAM Qty: 30 RF: 0 metoprolol succinate 25 mg Tablet Extended Release 24 Hr 25 mg PO QAM 30 Days Qty: 30 RF: 0 terazosin 1 mg Capsule 1 mg PO HS Qty: 30 RF: 0 Continued cyclobenzaprine 10 mg Tablet 10 mg PO TID RF: 0 sulfasalazine 500 mg Tablet,Delayed Release (Dr/Ec) 1 g PO BID RF: 0 pramipexole [Mirapex] 0.5 mg Tablet 0.5 mg PO HS RF: 0 magnesium hydroxide [Milk of Magnesia] 400 mg/5 mL Suspension 30 ml PO UD PRN (Reason: Constipation, IF NO BM FOR 3 DAYS) RF: 0 pregabalin [Lyrica] 100 mg Capsule 100 mg PO BID RF: 0 diclofenac sodium 1 % Gel 4 g TOPICAL TID RF: 0 oxycodone 10 mg Tablet 10 mg PO Q6H RF: 0 acetaminophen [Tylenol] 325 mg Tablet 650 mg PO Q6H MDD 3G PRN (Reason: Fever > 101 F) RF: 0 lamotrigine [Lamictal] 200 mg Tablet 400 mg PO DAILY RF: 0 aspirin 81 mg Tablet,Delayed Release (Dr/Ec) 81 mg PO DAILY RF: 0 citalopram [Celexa] 20 mg Tablet 20 mg PO DAILY RF: 0 ferrous sulfate 325 mg (65 mg iron) Tablet 325 mg PO DAILY RF: 0 lansoprazole 30 mg Capsule,Delayed Release(Dr/Ec) 30 mg PO DAILYBB RF: 0 bisacodyl 5 mg Tablet,Delayed Release (Dr/Ec) 5 mg PO DAILY RF: 0 polyethylene glycol 3350 [Miralax] 17 gram/dose Powder 17 g PO DAILY PRN (Reason: Constipation) RF: 0 fluticasone propionate 50 mcg/actuation [place],Suspension 2 spray INTRANASAL HS RF: 0 irbesartan 300 mg Tablet 300 mg PO DAILY RF: 0 Discontinued acetaminophen [Tylenol] 325 mg Capsule 650 mg PO Q6H RF: 0 furosemide [Lasix] 20 mg Tablet 20 mg PO DAILY RF: 0 No Action bumetanide [Bumex] 1 mg Tablet 1 mg PO DAILY PRN (Reason: Fluid Retention) RF: 0 menthol-zinc oxide [Calmoseptine] 0.44-20.6 % Ointment 1 applic TOPICAL TID RF: 0 nystatin 100,000 unit/gram Powder 1 applic TOPICAL BID RF: 0 Discharge Orders: Discharge Order (Routine); Ordered 03/11/21 Ordered By: Alek Toussaint/Other Patient Handouts: Coping with Heart Failure Admission Data Admit Date/Time: 03/06/21 04:42 Attending Provider: Alek Whitney Admit Provider: Jose Patterson Primary Care Provider: Shaq Trammell Other Providers: Jp, ; Jose Patterson ; Jeremy Valerio ; Drake Padilla ; Simone Carlton ; Daniel Palacios ; Ted Stanton ; Ervin Alvarez ; Hailey Barraza ; Gemma Eugene ; Phyllis Corcoran ; Ian Del Rio Other Interventions: Discharge Summary Assessment (RN) Last Done: 03/11/21 11:26
== END 2021-03-11 11:40 | DRG 292 ==
LOC: ED 00:44 → 2S 04:42 → 3E 03-09 16:06

== ENCOUNTER 2021-03-20 15:58 | Inpatient (IN) ==
--- NOTE | 2021-03-20 16:41 | Emergency Department Note ---
Impression & Plan Myalgia, Fluid overload, Ambulatory dysfunction ED Provider Note Provider: Trevin Esqueda MD DATE OF SERVICE: 03/20/2021 CHIEF COMPLAINT: joint pains, confusion HISTORY OF PRESENT ILLNESS: Patient is a 60-year-old gentleman with a history of CHF, hypertension, ABNER on CPAP, mood disorder, RLS, chronic pain secondary to rheumatoid arthritis with a history of septic arthritis in November of this year at [facility] in the right wrist and left knee per his report presenting here from [facility] rehab today complaining of worsening diffuse joint pains as well as a little bit of weakness/confusion. Evidently for the past 2 to 3 days patient states he seems a little more confused than normal. States that he accidentally put toothpaste on his finger instead of the toothbrush last night is been having to stare hearted a several button remote control is that it the facility which is abnormal for him. Denies fever. Denies falls. Denies chest pain or shortness of breath. Patient states he is a little bit irritation and discomfort under his pannus in the right lower abdo men. Reports a significant history of cellulitis in the past. Patient states all of his joints hurt. Patient states he is some concern this is similar to prior episode where he has septic arthritis and infection. Patient states his home pain medicine is not helping the pain and he last took it around noon. Patient states mild headache. Denies nausea or vomiting. Notes from his facility indicate that he had blood work yesterday but has gained about 20 pounds since hospitalization last week due to issues with the fluid restriction. REVIEW OF SYSTEMS: A total of 10 review of systems was obtained and negative except as stated above in the HPI. PAST MEDICAL HISTORY: As noted above MEDICATIONS:reviewed medication list from facility SOCIAL HISTORY: Currently resides at [facility] PHYSICAL EXAM: GENERAL: alert and oriented on stretcher Head: normocephalic and atraumatic EYES: No injection, discharge or icterus. PERRL NECK: Trachea midline. Supple. ENT: Mucous membranes pink and moist. LUNGS: Airway patent. No retractions. Breath sounds clear but distant HEART: Regular rate and rhythm. No chest wall tenderness ABDOMEN: Soft and non-tender, without guarding or rebound. SKIN: Acyanotic, warm, dry. White powder (nystatin) under bilateral breasts and abdominal pannus (mild pain under right lower pannus; mild erythema in all folds) EXTREMITIES: Mild diffuse tenderness in all limbs with healed scars on R wrist and L knee. Mild diffuse swelling with chronic statists changes on lower legs NEUROLOGICAL: No focal deficits. No aphasia. No facial droop or slurred speech. EK bpm normal sinus rhythm with right bundle branch block. No acute ST segment elevation is noted. QTC of 42. CONTINUOUS CARDIAC MONITORING: was ordered and showed a heart rate of 70s-90s bpm in NSR PDMP was checked without noted issue. Patient's laboratory studies and imaging reviewed. Differential includes Infection, dehydration, metabolic abnormality, hypo/hyperglycemia, electrolyte disturbance, anemia, hypoxia, cardiac sources, intracerebral event, toxicologic, neurologic, as well as other pathologies. IMPRESSION/MEDICAL DECISION MAKING: Chest x-ray some limitations due to habitus but no obvious pneumonia questionable bit of fluid. Some weight gain again reported from the facility not hypoxic here. Bit of weight gain and his edema may be worsening some of his symptoms and as such we will give a small amount of Bumex. Renal function otherwise looks okay. Mild hypomagnesemia. No significant leukocytosis and ESR and inflammatory markers are downtrending. Procalcitonin undetectable. Does have some mild diffuse body and joint tenderness but nothing really focal that make me think he has a focal septic joint or cellulitis. Doubt this is sepsis and seems less likely to be infectious. Has some mild candidal type irritations in the intertriginous zones of the chest and abdomen which have been appropriately powdered at this time. Patient reports at times a little bit of confusion mixing up his toothpaste and having trouble operating the bed controls at his facility. No focal neurological deficit I doubt this represents acute meningitis, CVA, intracranial bleed especially given the CAT scan. Question of this could be related to his pain medications. Again do not see signs of sepsis or significant metabolic abnormality. Given several dose of pain medicine still with significant pain and reports unable to ambulate. Reports again some confusion type issues and with the diffuse body pain now inhibiting transfer and movements is used to be ambulatory and now cannot do this; he did not feel comfortable returning to his facility at this time. Will discuss with the hospitalist for further care here including some diuresis and pain control. They can also continue to monitor any confusion he may intermittently be having. DIAGNOSIS: Fluid overload, myalgias, confusion DISPOSITION: Hospitalist will evaluate Patient was agreeable with this plan. Past Med/Surg History Medical History (Updated 03/21/21 @ 00:00 by Trevin Esqueda M.D.) Anxiety disorder Bilateral edema of lower extremity Cellulitis Delirium Hypertension Obesity Obstructive sleep apnea Pulmonary edema Restless leg syndrome Sepsis Septic joint of right knee joint Social History Smoking Status: Former smoker Tobacco Type: Pipe Second Hand Exposure: Yes; Hx Alcohol Use: Yes (has not had alcohol in a year and a half) Hx Substance Use: No Preferred Language: Nepalese Communication Ability: Effective Airline Station Agent Required: No Beliefs That Will Affect Care: None Current Living Situation: Significant Other Feels Safe at Home: Yes Assistive Devices: CPAP and Walker Allergies Allergies Allergy/AdvReac Type Severity Reaction Status Date / Time No Known Allergies Allergy Verified 03/20/21 21:28 Home Meds Home Medications Medication Instructions Recorded Confirmed cyclobenzaprine 10 mg tablet 10 mg PO TID 02/15/21 03/20/21 diclofenac sodium 1 % topical gel 4 g TOPICAL TID 02/15/21 03/20/21 magnesium hydroxide 400 mg/5 mL 30 ml PO UD PRN 02/15/21 03/20/21 oral suspension (Milk of Magnesia) oxycodone 10 mg tablet 10 mg PO Q6H 02/15/21 03/20/21 pramipexole 0.5 mg tablet (Mirapex) 0.5 mg PO HS 02/15/21 03/20/21 pregabalin 100 mg capsule (Lyrica) 100 mg PO BID 02/15/21 03/20/21 sulfasalazine 500 mg 1 g PO BID 02/15/21 03/20/21 tablet,delayed release acetaminophen 325 mg tablet 650 mg PO Q6H PRN MDD 3G 03/06/21 03/20/21 (Tylenol) aspirin 81 mg tablet,delayed 81 mg PO DAILY 03/06/21 03/20/21 release bisacodyl 5 mg tablet,delayed 5 mg PO DAILY 03/06/21 03/20/21 release citalopram 20 mg tablet (Celexa) 20 mg PO DAILY 03/06/21 03/20/21 ferrous sulfate 325 mg (65 mg 325 mg PO DAILY 03/06/21 03/20/21 iron) tablet fluticasone propionate 50 2 spray INTRANASAL HS 03/06/21 03/20/21 mcg/actuation nasal spray,suspension irbesartan 300 mg tablet 300 mg PO DAILY 03/06/21 03/20/21 lamotrigine 200 mg tablet 400 mg PO DAILY 03/06/21 03/20/21 (Lamictal) lansoprazole 30 mg capsule,delayed 30 mg PO DAILYBB 03/06/21 03/20/21 release polyethylene glycol 3350 17 17 g PO DAILY PRN 03/06/21 03/20/21 gram/dose oral powder (Miralax) bumetanide 1 mg tablet 1 mg PO DAILY PRN 03/20/21 03/20/21 menthol 0.44 %-zinc oxide 20.6 % 1 applic TOPICAL TID 03/20/21 03/20/21 topical ointment (Calmoseptine) nystatin 100,000 unit/gram topical 1 applic TOPICAL BID 03/20/21 03/20/21 powder Previous Rx's Medication Instructions Recorded bumetanide 1 mg tablet 1 mg PO QAM #30 tab 03/11/21 metoprolol succinate 25 mg 25 mg PO QAM 30 Days #30 tab 03/11/21 tablet,extended release 24 hr potassium chloride 20 mEq 20 meq PO DAILY #30 tab 03/11/21 tablet,extended release(part/cryst) (Klor-Con M) terazosin 1 mg capsule 1 mg PO HS #30 cap 03/11/21 Results & Data (ED) Vital Signs Vital Signs - 24 hr 03/20/21 16:00 03/20/21 16:04 03/20/21 17:00 Temperature 36.9 C Temperature Source Oral Pulse Rate 77 83 82 Pulse Rate from SpO2 Sensor 82 Pulse Rhythm Regular Pulse Strength Normal Respiratory Rate 13 18 10 L Respiratory Effort / Characteristics Spontaneous Respiratory Depth Normal Blood Pressure 141/68 H 141/68 H 139/75 Blood Pressure Mean 92 92 96 Pulse Oximetry 100 96 Oxygen Delivery Method Room Air Room Air Sepsis Recent Fever Within 48 Hours No Sepsis New/Unexplained Change in Mental Status No Sepsis Action Taken by Nursing No Action Required 03/20/21 18:14 03/20/21 19:00 03/20/21 20:01 Temperature Temperature Source Pulse Rate 85 80 79 Pulse Rate from SpO2 Sensor 77 Pulse Rhythm Pulse Strength Respiratory Rate 24 25 H 21 Respiratory Effort / Characteristics Respiratory Depth Blood Pressure 145/86 H 166/79 H 169/94 H Blood Pressure Mean 105 108 119 Pulse Oximetry 95 100 Oxygen Delivery Method Sepsis Recent Fever Within 48 Hours Sepsis New/Unexplained Change in Mental Status Sepsis Action Taken by Nursing Laboratory Data Result diagrams: 03/20/21 17:16 03/20/21 17:16 Lab Results 03/20/21 03/20/21 03/20/21 Range/Units 17:16 17:16 17:16 WBC (4.8-10.8) K/uL RBC (4.7-6.1) M/uL Hgb (14.0-18.0) g/dL Hct (42-52) % MCV (80-100) fL MCH (25-34) pg MCHC (32-36) g/dL RDW Std Deviation (36.4-46.3) fL RDW Coeff of Pablo (11.5-14.5) % Plt Count (130-400) K/uL MPV (7.4-10.4) fL Immature Gran % (Auto) % Neut % (Auto) % Lymph % (Auto) % [place] % (Auto) % Eos % (Auto) % Baso % (Auto) % Neut # (Auto) (1.4-6.5) K/uL Lymph # (Auto) (1.2-3.4) K/uL [place] # (Auto) (0.11-0.59) K/uL Eos # (Auto) (0-0.5) K/uL Baso # (Auto) (0-0.2) K/uL Immature Gran # (Auto) (0.00-0.02) K/uL ESR 37 H (0-20) mm/hr PT 11.0 (9.0-12.0) Seconds INR 1.1 (0.9-1.1) Sodium (136-145) mmol/L Potassium (3.5-5.1) mmol/L Chloride (98-107) mmol/L Carbon Dioxide (21-32) mmol/L Anion Gap (3-11) BUN (7-18) mg/dl Creatinine (0.6-1.4) mg/dl Est Cr Clr Drug Dosing ml/min Est GFR ( Amer) ml/min Est GFR (Non-Af Amer) ml/min BUN/Creatinine Ratio (10-20) Glucose (70-99) mg/dl Lactate 0.8 (0.4-2.0) mmol/L Calcium (8.5-10.1) mg/dl Magnesium (1.8-2.4) mg/dl Total Bilirubin (0.2-1) mg/dl AST (15-37) U/L ALT (12-78) U/L Alkaline Phosphatase (45-117) U/L Troponin I (0-0.045) ng/ml C-Reactive Protein (0-0.29) mg/dl Total Protein (6.4-8.2) gm/dl Albumin (3.4-5.0) gm/dl Globulin (2.5-4.0) gm/dl Albumin/Globulin Ratio (0.9-2) Procalcitonin (0-0.5) ng/ml TSH (0.300-4.500) uIu/ml COVID-19 Eval Order SARS-CoV-2 (PCR) (Negative) 03/20/21 03/20/21 03/20/21 Range/Units 17:16 17:16 17:16 WBC 4.62 L (4.8-10.8) K/uL RBC 3.74 L (4.7-6.1) M/uL Hgb 11.3 L (14.0-18.0) g/dL Hct 34.5 L (42-52) % MCV 92.2 (80-100) fL MCH 30.2 (25-34) pg MCHC 32.8 (32-36) g/dL RDW Std Deviation 55.1 H (36.4-46.3) fL RDW Coeff of Pablo 16.3 H (11.5-14.5) % Plt Count 134 (130-400) K/uL MPV 10.8 H (7.4-10.4) fL Immature Gran % (Auto) 0.2 % Neut % (Auto) 63.7 % Lymph % (Auto) 17.3 % [place] % (Auto) 14.9 % Eos % (Auto) 3.5 % Baso % (Auto) 0.4 % Neut # (Auto) 2.94 (1.4-6.5) K/uL Lymph # (Auto) 0.80 L (1.2-3.4) K/uL [place] # (Auto) 0.69 H (0.11-0.59) K/uL Eos # (Auto) 0.16 (0-0.5) K/uL Baso # (Auto) 0.02 (0-0.2) K/uL Immature Gran # (Auto) 0.01 (0.00-0.02) K/uL ESR (0-20) mm/hr PT (9.0-12.0) Seconds INR (0.9-1.1) Sodium 138 (136-145) mmol/L Potassium 4.0 (3.5-5.1) mmol/L Chloride 107 (98-107) mmol/L Carbon Dioxide 26 (21-32) mmol/L Anion Gap 5.0 (3-11) BUN 15 (7-18) mg/dl Creatinine 0.90 (0.6-1.4) mg/dl Est Cr Clr Drug Dosing 170.8 ml/min Est GFR ( Amer) 108.7 ml/min Est GFR (Non-Af Amer) 93.8 ml/min BUN/Creatinine Ratio 16.3 (10-20) Glucose 96 (70-99) mg/dl Lactate (0.4-2.0) mmol/L Calcium 8.5 (8.5-10.1) mg/dl Magnesium 1.7 L (1.8-2.4) mg/dl Total Bilirubin 0.4 (0.2-1) mg/dl AST 35 (15-37) U/L ALT 37 (12-78) U/L Alkaline Phosphatase 261 H (45-117) U/L Troponin I < 0.015 (0-0.045) ng/ml C-Reactive Protein 1.68 H (0-0.29) mg/dl Total Protein 6.7 (6.4-8.2) gm/dl Albumin 3.0 L (3.4-5.0) gm/dl Globulin 3.7 (2.5-4.0) gm/dl Albumin/Globulin Ratio 0.8 L (0.9-2) Procalcitonin < 0.05 (0-0.5) ng/ml TSH 1.570 (0.300-4.500) uIu/ml COVID-19 Eval Order SARS-CoV-2 (PCR) (Negative) 03/20/21 03/20/21 Range/Units 17:30 17:30 WBC (4.8-10.8) K/uL RBC (4.7-6.1) M/uL Hgb (14.0-18.0) g/dL Hct (42-52) % MCV (80-100) fL MCH (25-34) pg MCHC (32-36) g/dL RDW Std Deviation (36.4-46.3) fL RDW Coeff of Pablo (11.5-14.5) % Plt Count (130-400) K/uL MPV (7.4-10.4) fL Immature Gran % (Auto) % Neut % (Auto) % Lymph % (Auto) % [place] % (Auto) % Eos % (Auto) % Baso % (Auto) % Neut # (Auto) (1.4-6.5) K/uL Lymph # (Auto) (1.2-3.4) K/uL [place] # (Auto) (0.11-0.59) K/uL Eos # (Auto) (0-0.5) K/uL Baso # (Auto) (0-0.2) K/uL Immature Gran # (Auto) (0.00-0.02) K/uL ESR (0-20) mm/hr PT (9.0-12.0) Seconds INR (0.9-1.1) Sodium (136-145) mmol/L Potassium (3.5-5.1) mmol/L Chloride (98-107) mmol/L Carbon Dioxide (21-32) mmol/L Anion Gap (3-11) BUN (7-18) mg/dl Creatinine (0.6-1.4) mg/dl Est Cr Clr Drug Dosing ml/min Est GFR ( Amer) ml/min Est GFR (Non-Af Amer) ml/min BUN/Creatinine Ratio (10-20) Glucose (70-99) mg/dl Lactate (0.4-2.0) mmol/L Calcium (8.5-10.1) mg/dl Magnesium (1.8-2.4) mg/dl Total Bilirubin (0.2-1) mg/dl AST (15-37) U/L ALT (12-78) U/L Alkaline Phosphatase (45-117) U/L Troponin I (0-0.045) ng/ml C-Reactive Protein (0-0.29) mg/dl Total Protein (6.4-8.2) gm/dl Albumin (3.4-5.0) gm/dl Globulin (2.5-4.0) gm/dl Albumin/Globulin Ratio (0.9-2) Procalcitonin (0-0.5) ng/ml TSH (0.300-4.500) uIu/ml COVID-19 Eval Order Covid19 at [facility] SARS-CoV-2 (PCR) NEGATIVE (Negative) Administered Medications Terazosin HCl (Terazosin Hcl 1 Mg Cap) 1 mg PO HS MALAIKA Stop: 04/19/21 22:34 Last Admin: 03/20/21 22:47 Dose: 1 mg Documented by: [id number] Discontinued Medications Fentanyl Citrate (Fentanyl Citrate 100 Mcg/2 Ml Vial) 100 mcg IV NOW STA Stop: 03/20/21 16:57 Last Admin: 03/20/21 17:22 Dose: 100 mcg Documented by: [id number] Magnesium Sulfate/Dextrose (Magnesium Sulfate / D5w) 1 gm in 100 mls @ 200 mls/hr IV Q30M MALAIKA Stop: 03/20/21 18:59 Last Infusion: 03/20/21 19:19 Dose: 0 mls/hr Documented by: [id number] Admin: 03/20/21 18:45 Dose: 200 mls/hr Documented by: [id number] Infusion: 03/20/21 18:45 Dose: 200 mls/hr Documented by: [id number] Admin: 03/20/21 18:15 Dose: 200 mls/hr Documented by: [id number] Acetaminophen (Ofirmev) 1,000 mg in 100 mls @ 400 mls/hr IV NOW STA Stop: 03/20/21 19:13 Last Infusion: 03/20/21 20:28 Dose: 0 mls/hr Documented by: [id number] Admin: 03/20/21 19:13 Dose: 400 mls/hr Documented by: [id number] Bumetanide 1 mg/ Syringe 4 mls @ 4 mls/min IV ONE ONE Stop: 03/20/21 19:02 Last Admin: 03/20/21 19:19 Dose: 4 mls/min Documented by: [id number] Morphine Sulfate (Morphine Sulfate 4 Mg/Ml 1 Ml Carp\Vial) 4 mg IV NOW STA Stop: 03/20/21 19:00 Last Admin: 03/20/21 19:13 Dose: 4 mg Documented by: [id number] Imaging Data Radiologist's Impression: Head CT 03/20/21 16:53 CT head/brain wo con CLINICAL HISTORY: 60 years-old Male with weak, confused. Acutely altered mental status TECHNIQUE: Multiple axial CT images of the head were obtained without contrast. A dose lowering technique was utilized adhering to the principles of ALARA. CT DOSE: 1618.64 mGy.cm COMPARISON: None. FINDINGS: Mildly motion degraded exam. No acute intracranial hemorrhage, midline shift, intracranial mass, hydrocephalus, territorial ischemia or abnormal extra-axial collection. The calvarium is intact. The paranasal sinuses, mastoid air cells, and middle ear cavities are clear. IMPRESSION: No acute intracranial abnormality. ACT 112: Negative or not required by law. The above report was generated using voice recognition software. It may contain grammatical, syntax or spelling errors. Electronically signed by: Samuel Haile M.D. 03/20/2021 6:41 PM Chest X-Ray 03/20/21 16:54 XR chest 1V portable HISTORY: 60 years-old Male weakness acute weakness COMPARISON: 03/06/2021 TECHNIQUE: Portable AP view of the chest FINDINGS: Cardiac silhouette is enlarged. Pulmonary vascular congestion. Unchanged coarsening of the interstitium. No pneumothorax, large pleural effusion or lobar airspace consolidation. No acute fracture. IMPRESSION: Cardiomegaly with unchanged coarsening of the interstitium, likely secondary to patient body habitus. Pulmonary edema or interstitial pneumonitis considered less likely. ACT 112: Negative or not required by law. The above report was generated using voice recognition software. It may contain grammatical, syntax or spelling errors. Electronically signed by: Samuel Haile M.D. 03/20/2021 5:22 PM Discharge Plan Visit Data Chief Complaint: Pain (Generalized) Stated Complaint: CHRONIC PAIN ED Provider: Trevin Esqueda Discharge Problem: Myalgia, Fluid overload, Ambulatory dysfunction Patient Disposition: Being Evaluated by Hospitalist Discharge Problem: Fluid overload Qualifiers: Hypervolemia type: unspecified Qualified Code(s): E87.70 - Fluid overload, unspecified
[2021-03-20] MEDS ORDERED: fentaNYL citrate 100 MCG/2 ML VIAL IV STA (16:56)
--- NOTE | 2021-03-20 17:23 | XRay Report ---
XR chest 1V portable HISTORY: 60 years-old Male weakness acute weakness COMPARISON: 03/06/2021 TECHNIQUE: Portable AP view of the chest FINDINGS: Cardiac silhouette is enlarged. Pulmonary vascular congestion. Unchanged coarsening of the interstiti um. No pneumothorax, large pleural effusion or lobar airspace consolidation. No acute fracture. IMPRESSION: Cardiomegaly with unchanged coarsening of the interstitium, likely secondary to patient b katie habitus. Pulmonary edema or interstitial pneumonitis considered less likely. ACT 112: Negative or not required by law. The above report was generated using voice recognition software. It may contain grammatical, syntax o r spelling errors. Electronically signed by: Samuel Haile M.D. 03/20/2021 5:22 PM
[2021-03-20 17:26] LABS: Basophils # (auto) 0.02 K/uL (0-0.2); Basophils % (auto) 0.4 %; Eosinophils # (auto) 0.16 K/uL (0-0.5); Eosinophils % (auto) 3.5 %; Hematocrit (blood only) 34.5 % (42-52); Hemoglobin 11.3 g/dL (14.0-18.0); Immature Granulocytes # (auto) 0.01 K/uL (0.00-0.02); Immature Granulocytes % (auto) 0.2 %; Lymphocytes % (auto) 17.3 %; Mean Corpuscular Hemoglobin 30.2 pg (25-34); Mean Corpuscular Hgb Conc 32.8 g/dL (32-36); Mean Corpuscular Volume 92.2 fL (80-100); Mean Platelet Volume 10.8 fL (7.4-10.4); Monocytes # (auto) 0.69 K/uL (0.11-0.59); Monocytes % (auto) 14.9 %; Neutrophils # (auto) 2.94 K/uL (1.4-6.5); Neutrophils % (auto) 63.7 %; Platelet Count 134 K/uL (130-400); RDW Coefficient of Variation 16.3 % (11.5-14.5); RDW Standard Deviation 55.1 fL (36.4-46.3); Red Blood Count 3.74 M/uL (4.7-6.1); White Blood Count 4.62 K/uL (4.8-10.8)
[2021-03-20 17:40] LABS: INR 1.1 (0.9-1.1)
[2021-03-20 17:51] LABS: BUN Creatinine Ratio 16.3 (10-20); Blood Urea Nitrogen 15 mg/dl (7-18); C Reactive Protein 1.68 mg/dl (0-0.29); Calcium 8.5 mg/dl (8.5-10.1); Carbon Dioxide 26 mmol/L (21-32); Chloride 107 mmol/L (98-107); Creatinine Clr Calc Pharmacy 170.8 ml/min; Est GFR (African American) 108.7 ml/min; Est GFR (Non-African American) 93.8 ml/min; Glucose 96 mg/dl (70-99); Magnesium 1.7 mg/dl (1.8-2.4); Sodium 138 mmol/L (136-145)
[2021-03-20 18:02] LABS: Alanine Aminotransferase 37 U/L (12-78); Albumin Globulin Ratio 0.8 (0.9-2); Alkaline Phosphatase 261 U/L (45-117); Aspartate Aminotransferase 35 U/L (15-37); Bilirubin,Total 0.4 mg/dl (0.2-1); Globulin 3.7 gm/dl (2.5-4.0); Total Protein 6.7 gm/dl (6.4-8.2); Troponin I < 0.015 ng/ml (0-0.045)
[2021-03-20] MEDS: MAGNESIUM SULFATE / D5W 1 GM/100 ML BAG IV SCH ×2 (18:15→18:45)
--- NOTE | 2021-03-20 18:42 | CT Scan Report ---
CT head/brain wo con CLINICAL HISTORY: 60 years-old Male with weak, confused. Acutely altered mental status TECHNIQUE: Multiple axial CT images of the head were obtained without contrast. A dose lowering tech nique was utilized adhering to the principles of ALARA. CT DOSE: 1618.64 mGy.cm COMPARISON: None. FINDINGS: Mildly motion degraded exam. No acute intracranial hemorrhage, midline shift, intracranial mass, hydr ocephalus, territorial ischemia or abnormal extra-axial collection. The calvarium is intact. The paranasal sinuses, mastoid air cells, and middle ear cavities are clear . IMPRESSION: No acute intracranial abnormality. ACT 112: Negative or not required by law. The above report was generated using voice recognition software. It may contain grammatical, syntax o r spelling errors. Electronically signed by: Samuel Haile M.D. 03/20/2021 6:41 PM
[2021-03-20] MEDS ORDERED: ACETAMINOPHEN 1,000 MG/100 ML VIAL IV STA (18:59)
[2021-03-20] MEDS ORDERED: MoRPHine SULFATE 4 MG/ML 1 ML CARP\\VIAL IV STA (18:59)
[2021-03-20] MEDS ORDERED: BUMETANIDE 1 MG in SYRINGE 0 ML IV ONE (19:01)
[2021-03-20 21:58] LABS: Lyme Ab IgG w/WB Rflx Negative (Negative); Lyme Ab IgM w/WB Rflx Negative (Negative)
--- NOTE | 2021-03-20 22:34 | History & Physical Report ---
Date of Service March 20, 2021 Assessment & Plan (1) HTN (hypertension): Plan: Slightly elevated Generalized body/joint aches ? RA flareup hx chronic pain secondary to rheumatoid arthritis on narcotics and sulfasalazine Rule out recurrent septic arthritis given patient history/complaints No overt sepsis/obvious source of infection for now for now. Chronic diastolic heart failure, patient euvolemic to dry mood disorder, at baseline Chronic anemia, hemoglobin at baseline OBS Medical telemetry Facilitate home BP meds, may need dose titration CS. Hold off on antibiotics for now until definite source found May benefit from rheumatology consultation for possible RA flareup DVT prophylaxis per Lovenox subcu Full code Text document was generated using [employer] voice recognition software. It may contain grammatical or spelling errors. Kindly contact undersigned for clarification of any documentation item in question. Admission and Anticipated Discharge Date Admission Date: March 20, 2021 History of Present Illness Chief Complaint: Not feeling well, body aches Primary Care Provider: Chano Stearns History obtained from patient, family, and records. Medical history significant for diastolic CHF (EF 55 to 60%, TTE 2020), hypertension, ABNER on CPAP, mood disorder, RLS, chronic pain secondary to rheumatoid arthritis on narcotics and sulfasalazine, septic arthritis status post surgery/antibiotic Rx, chronic anemia (baseline hemoglobin of 10). Last confinement 2 weeks ago for decompensated heart failure. Patient discharged on Bumex Rx. Patient not feeling well the last few days. Feeling achy all over. [place] like he was getting septic again. No chest pain, no S OB, no cough, no abdominal pain, no diarrhea. Achy headache symptoms. Concerned about weight gain/px nonadherence with fluid restriction at [facility] rehab facility which patient disputes. Weight actually better as per patient. Patient claims he is not being weighed properly at facility by staff. Patient given IV Bumex at the ER. Medical History as above Surgical History : Orthopedic procedures Family History : HTN Personal/Social history : Non-smoker, no EtOH intake, disabled Allergies Allergy/AdvReac Type Severity Reaction Status Date / Time No Known Allergies Allergy Verified 03/20/21 21:28 Home Medications Medication Instructions Recorded Confirmed Type cyclobenzaprine 10 mg tablet 10 mg PO TID 02/15/21 03/20/21 History diclofenac sodium 1 % topical gel 4 g TOPICAL TID 02/15/21 03/20/21 History magnesium hydroxide 400 mg/5 mL 30 ml PO UD PRN 02/15/21 03/20/21 History oral suspension (Milk of Magnesia) oxycodone 10 mg tablet 10 mg PO Q6H 02/15/21 03/20/21 History pramipexole 0.5 mg tablet (Mirapex) 0.5 mg PO HS 02/15/21 03/20/21 History pregabalin 100 mg capsule (Lyrica) 100 mg PO BID 02/15/21 03/20/21 History sulfasalazine 500 mg 1 g PO BID 02/15/21 03/20/21 History tablet,delayed release acetaminophen 325 mg tablet 650 mg PO Q6H PRN MDD 3G 03/06/21 03/20/21 History (Tylenol) aspirin 81 mg tablet,delayed 81 mg PO DAILY 03/06/21 03/20/21 History release bisacodyl 5 mg tablet,delayed 5 mg PO DAILY 03/06/21 03/20/21 History release citalopram 20 mg tablet (Celexa) 20 mg PO DAILY 03/06/21 03/20/21 History ferrous sulfate 325 mg (65 mg 325 mg PO DAILY 03/06/21 03/20/21 History iron) tablet fluticasone propionate 50 2 spray INTRANASAL HS 03/06/21 03/20/21 History mcg/actuation nasal spray,suspension irbesartan 300 mg tablet 300 mg PO DAILY 03/06/21 03/20/21 History lamotrigine 200 mg tablet 400 mg PO DAILY 03/06/21 03/20/21 History (Lamictal) lansoprazole 30 mg capsule,delayed 30 mg PO DAILYBB 03/06/21 03/20/21 History release polyethylene glycol 3350 17 17 g PO DAILY PRN 03/06/21 03/20/21 History gram/dose oral powder (Miralax) bumetanide 1 mg tablet 1 mg PO QAM #30 tab 03/11/21 03/20/21 Rx metoprolol succinate 25 mg 25 mg PO QAM 30 Days #30 tab 03/11/21 03/20/21 Rx tablet,extended release 24 hr potassium chloride 20 mEq 20 meq PO DAILY #30 tab 03/11/21 03/20/21 Rx tablet,extended release(part/cryst) (Klor-Con M) terazosin 1 mg capsule 1 mg PO HS #30 cap 03/11/21 03/20/21 Rx bumetanide 1 mg tablet 1 mg PO DAILY PRN 03/20/21 03/20/21 History menthol 0.44 %-zinc oxide 20.6 % 1 applic TOPICAL TID 03/20/21 03/20/21 History topical ointment (Calmoseptine) nystatin 100,000 unit/gram topical 1 applic TOPICAL BID 03/20/21 03/20/21 History powder Past Med/Surg History Medical History (Updated 03/20/21 @ 23:07 by Jose Patterson MD) Anxiety disorder Bilateral edema of lower extremity Cellulitis Delirium Hypertension Obesity Obstructive sleep apnea Pulmonary edema Restless leg syndrome Sepsis Septic joint of right knee joint Social History Smoking Status: Former smoker Tobacco Type: Pipe Second Hand Exposure: Yes; Hx Alcohol Use: Yes (has not had alcohol in a year and a half) Hx Substance Use: No Preferred Language: Tamazight Communication Ability: Effective Ship Scraper Required: No Beliefs That Will Affect Care: None Current Living Situation: Significant Other Feels Safe at Home: Yes Assistive Devices: CPAP and Walker Review of Systems Review of Systems: As per HPI, all 10 systems reviewed, all other ROS negative Physical Exam Physical Exam: GENERAL: Slightly uncomfortable, morbidly obese, pleasant, no respiratory distress SKIN: Pallor, warm HEENT: Pale palpebral conjunctivae, no ptosis, dry buccal mucosa NECK : Supple, short neck, no tenderness CHEST : Decreased breath sounds, no tenderness HEART : RRR, no obvious murmurs ABDOMEN: Some distention, nontender EXTREMITIES : Bilateral LE venous stasis, no LE tenderness, no other conspicuous deformities noted NEUROLOGIC : Coherent, no facial asymmetry, no other gross focality Results & Data Results & Data ([facility]) Vital Signs (Past 12 Hours) Vital Signs Temp Pulse Resp BP Pulse Ox 03/20/21 22:00 75 18 99 03/20/21 21:01 76 14 98 03/20/21 20:01 79 21 169/94 H 100 03/20/21 19:00 80 25 H 166/79 H 03/20/21 18:14 85 24 145/86 H 95 03/20/21 17:00 82 10 L 139/75 96 03/20/21 16:04 36.9 C 83 18 141/68 H 100 03/20/21 16:00 77 13 141/68 H Laboratory Results Laboratory Results WBC 4.62 K/uL (4.8-10.8) L 03/20/21 17:16 RBC 3.74 M/uL (4.7-6.1) L 03/20/21 17:16 Hgb 11.3 g/dL (14.0-18.0) L 03/20/21 17:16 Hct 34.5 % (42-52) L 03/20/21 17:16 MCV 92.2 fL (80-100) 03/20/21 17:16 MCH 30.2 pg (25-34) 03/20/21 17:16 MCHC 32.8 g/dL (32-36) 03/20/21 17:16 RDW Std Deviation 55.1 fL (36.4-46.3) H 03/20/21 17:16 RDW Coeff of Pablo 16.3 % (11.5-14.5) H 03/20/21 17:16 Plt Count 134 K/uL (130-400) 03/20/21 17:16 MPV 10.8 fL (7.4-10.4) H 03/20/21 17:16 Immature Gran % (Auto) 0.2 % 03/20/21 17:16 Neut % (Auto) 63.7 % 03/20/21 17:16 Lymph % (Auto) 17.3 % 03/20/21 17:16 [place] % (Auto) 14.9 % 03/20/21 17:16 Eos % (Auto) 3.5 % 03/20/21 17:16 Baso % (Auto) 0.4 % 03/20/21 17:16 Neut # (Auto) 2.94 K/uL (1.4-6.5) 03/20/21 17:16 Lymph # (Auto) 0.80 K/uL (1.2-3.4) L 03/20/21 17:16 [place] # (Auto) 0.69 K/uL (0.11-0.59) H 03/20/21 17:16 Eos # (Auto) 0.16 K/uL (0-0.5) 03/20/21 17:16 Baso # (Auto) 0.02 K/uL (0-0.2) 03/20/21 17:16 Immature Gran # (Auto) 0.01 K/uL (0.00-0.02) 03/20/21 17:16 ESR 37 mm/hr (0-20) H 03/20/21 17:16 PT 11.0 Seconds (9.0-12.0) 03/20/21 17:16 INR 1.1 (0.9-1.1) 03/20/21 17:16 Sodium 138 mmol/L (136-145) 03/20/21 17:16 Potassium 4.0 mmol/L (3.5-5.1) 03/20/21 17:16 Chloride 107 mmol/L (98-107) 03/20/21 17:16 Carbon Dioxide 26 mmol/L (21-32) 03/20/21 17:16 Anion Gap 5.0 (3-11) 03/20/21 17:16 BUN 15 mg/dl (7-18) 03/20/21 17:16 Creatinine 0.90 mg/dl (0.6-1.4) 03/20/21 17:16 Est Cr Clr Drug Dosing 170.8 ml/min 03/20/21 17:16 Est GFR ( Amer) 108.7 ml/min 03/20/21 17:16 Est GFR (Non-Af Amer) 93.8 ml/min 03/20/21 17:16 BUN/Creatinine Ratio 16.3 (10-20) 03/20/21 17:16 Glucose 96 mg/dl (70-99) 03/20/21 17:16 Lactate 0.8 mmol/L (0.4-2.0) 03/20/21 17:16 Calcium 8.5 mg/dl (8.5-10.1) 03/20/21 17:16 Magnesium 1.7 mg/dl (1.8-2.4) L 03/20/21 17:16 Total Bilirubin 0.4 mg/dl (0.2-1) 03/20/21 17:16 AST 35 U/L (15-37) 03/20/21 17:16 ALT 37 U/L (12-78) 03/20/21 17:16 Alkaline Phosphatase 261 U/L (45-117) H 03/20/21 17:16 Total Creatine Kinase 37 U/L (39-308) L 03/20/21 20:57 Troponin I < 0.015 ng/ml (0-0.045) 03/20/21 17:16 C-Reactive Protein 1.68 mg/dl (0-0.29) H 03/20/21 17:16 Total Protein 6.7 gm/dl (6.4-8.2) 03/20/21 17:16 Albumin 3.0 gm/dl (3.4-5.0) L 03/20/21 17:16 Globulin 3.7 gm/dl (2.5-4.0) 03/20/21 17:16 Albumin/Globulin Ratio 0.8 (0.9-2) L 03/20/21 17:16 Procalcitonin < 0.05 ng/ml (0-0.5) 03/20/21 17:16 TSH 1.570 uIu/ml (0.300-4.500) 03/20/21 17:16 Lyme Disease IgG Ab Negative (Negative) 03/20/21 20:57 Lyme Disease IgM Ab Negative (Negative) 03/20/21 20:57 COVID-19 Eval Order Covid19 at [facility] 03/20/21 17:30 SARS-CoV-2 (PCR) NEGATIVE (Negative) 03/20/21 17:[address] 03/20/21 16:53 CT head/brain wo con CLINICAL HISTORY: 60 years-old Male with weak, confused. Acutely altered mental status TECHNIQUE: Multiple axial CT images of the head were obtained without contrast. A dose lowering technique was utilized adhering to the principles of ALARA. CT DOSE: 1618.64 mGy.cm COMPARISON: None. FINDINGS: Mildly motion degraded exam. No acute intracranial hemorrhage, midline shift, intracranial mass, hydrocephalus, territorial ischemia or abnormal extra-axial collection. The calvarium is intact. The paranasal sinuses, mastoid air cells, and middle ear cavities are clear. IMPRESSION: No acute intracranial abnormality. ACT 112: Negative or not required by law. The above report was generated using voice recognition software. It may contain grammatical, syntax or spelling errors. Electronically signed by: Samuel Haile M.D. 03/20/2021 6:41 PM Chest X-Ray 03/20/21 16:54 XR chest 1V portable HISTORY: 60 years-old Male weakness acute weakness COMPARISON: 03/06/2021 TECHNIQUE: Portable AP view of the chest FINDINGS: Cardiac silhouette is enlarged. Pulmonary vascular congestion. Unchanged coarsening of the interstitium. No pneumothorax, large pleural effusion or lobar airspace consolidation. No acute fracture. IMPRESSION: Cardiomegaly with unchanged coarsening of the interstitium, likely secondary to patient body habitus. Pulmonary edema or interstitial pneumonitis considered less likely. ACT 112: Negative or not required by law. The above report was generated using voice recognition software. It may contain grammatical, syntax or spelling errors. Electronically signed by: Samuel Haile M.D. 03/20/2021 5:22 PM Diagnostic Findings EKG as per my interpretation: Rate 80, NSR, normal axis, RBBB, T wave flattening inferior leads Code Status & VTE Plan VTE Prophylaxis Plan VTE Prophylaxis will be ordered: Yes
[2021-03-20] MEDS: TERAZOSIN HCL 1 MG CAP PO SCH (22:47)
[2021-03-21] MEDS ORDERED: ACETAMINOPHEN 325 MG TAB PO PRN (00:39)
[2021-03-21] MEDS ORDERED: POLYETHYLENE (MIRALAX) 17 GM PACK PO PRN (00:39)
[2021-03-21] MEDS ORDERED: PROMETHAZINE HCL 12.5 MG in SODIUM CHLORIDE 0.9% 50 ML IV PRN (00:39)
[2021-03-21] MEDS: oxyCODONE HCL IR 5 MG TAB (IMMEDIATE RELEASE) PO SCH ×5 (01:03→23:51)
[2021-03-21] MEDS: PREGABALIN 100 MG CAP PO SCH ×3 (01:04→21:44)
[2021-03-21] MEDS: sulfaSALAzine 500 MG TABEC PO SCH ×3 (01:04→21:44)
[2021-03-21] MEDS ORDERED: CYCLOBENZAPRINE HCL 10 MG TAB PO PRN (01:04)
[2021-03-21] MEDS: oxyCODONE HCL IR 5 MG TAB (IMMEDIATE RELEASE) PO PRN ×2 (04:35→09:37)
[2021-03-21] MEDS: PANTOprazole 40 MG TAB PO SCH (05:41)
[2021-03-21 05:47] LABS: Basophils # (auto) 0.01 K/uL (0-0.2); Basophils % (auto) 0.3 %; Eosinophils # (auto) 0.14 K/uL (0-0.5); Eosinophils % (auto) 3.8 %; Hematocrit (blood only) 34.9 % (42-52); Hemoglobin 11.3 g/dL (14.0-18.0); Immature Granulocytes # (auto) 0.01 K/uL (0.00-0.02); Immature Granulocytes % (auto) 0.3 %; Lymphocytes % (auto) 24.5 %; Mean Corpuscular Hemoglobin 30.5 pg (25-34); Mean Corpuscular Hgb Conc 32.4 g/dL (32-36); Mean Corpuscular Volume 94.3 fL (80-100); Mean Platelet Volume 10.6 fL (7.4-10.4); Monocytes # (auto) 0.51 K/uL (0.11-0.59); Monocytes % (auto) 13.9 %; Neutrophils # (auto) 2.11 K/uL (1.4-6.5); Neutrophils % (auto) 57.2 %; Platelet Count 126 K/uL (130-400); RDW Coefficient of Variation 16.3 % (11.5-14.5); RDW Standard Deviation 56.1 fL (36.4-46.3); White Blood Count 3.68 K/uL (4.8-10.8)
[2021-03-21 06:07] LABS: Calcium 9.1 mg/dl (8.5-10.1); Creatinine Clr Calc Pharmacy 197.1 ml/min; Est GFR (African American) 115.3 ml/min; Est GFR (Non-African American) 99.5 ml/min; Magnesium 1.9 mg/dl (1.8-2.4)
[2021-03-21] MEDS: IRBESARTAN 150 MG TAB PO SCH (08:08)
[2021-03-21] MEDS: FERROUS SULFATE 325 MG TAB PO SCH (08:08)
[2021-03-21] MEDS: lamoTRIgine 100 MG TAB PO SCH (08:08)
[2021-03-21] MEDS: POTASSIUM CHLORIDE CRTAB 20 MEQ TABCR PO SCH (08:08)
[2021-03-21] MEDS: CITALOPRAM 20 MG TAB PO SCH (08:09)
[2021-03-21] MEDS: BUMETANIDE 1 MG TAB PO SCH (08:09)
[2021-03-21] MEDS: ASPIRIN 81 MG ECTAB PO SCH (08:09)
[2021-03-21] MEDS: bisacodyL 5 MG TABEC PO SCH (08:09)
[2021-03-21] MEDS: METOPROLOL SUCC 25MG EXT REL TAB PO SCH (08:09)
[2021-03-21] MEDS: DICLOFENAC SOD 1% GEL 100 GM TUBE EXT SCH ×3 (08:10→21:44)
--- NOTE | 2021-03-21 08:57 | Electrocardiogram Report ---
Test Reason : Blood Pressure : / mmHG Vent. Rate : 080 BPM Atrial Rate : 080 BPM P-R Int : 186 ms QRS Dur : 154 ms QT Int : 418 ms P-R-T Axes : 064 012 029 degrees QTc Int : 482 ms Normal sinus rhythm Right bundle branch block Abnormal ECG When compared with ECG of 07-MAR-2021 06:00, Criteria for Inferior infarct are no longer Present Confirmed by Nelson Tomas ([id number]) on 03/21/2021 8:56:56 AM Referred By: Shaq Trammell Confirmed By:Nelson Tomas
[2021-03-21 15:36] LABS: Appearance Urine Clear (Clear); Bacteria Urine Automated Negative (Negative); Bilirubin Urine Negative (Negative); Blood Urine 2+ (Negative); Color Urine Yellow; Glucose Urine UA Negative (Negative); Ketones Urine Negative (Negative); Leukocyte Esterase Urine 1+ (Negative); Nitrite Urine Negative (Negative); Protein Urine Negative (Negative); Urobilinogen Urine Negative (Negative); pH Urine 6.5 (4.5-7.5)
[2021-03-21] MEDS: predniSONE 20 MG TAB PO SCH (20:02)
[2021-03-21] MEDS: PRAMIPEXOLE DIHYDROCHLO 0.5 MG TAB PO SCH (21:44)
[2021-03-21] MEDS: TERAZOSIN HCL 1 MG CAP PO SCH (21:44)
--- NOTE | 2021-03-21 22:40 | Hospitalist Progress Note ---
Date of Service March 21, 2021 Assessment & Plan (1) Myalgia: Plan: Ambulatory dysfunction Present on admission with Joint pain and ambulatory dysfunction Mostly related to RA flares CTA head showed no acute intracranial abnormality. Currently on Sulfasalazine and oxycodone Case discussed with Rheumatology Dr. Taylor that recommended to start Prednisone taper 20mg daily x 3 days, then 15mg x3, 10mgx3 and 5mg Dr. Taylor will see him as an outpatient Continue PT/OT eval Fall precaution Heart failure Denies any SOB He said that he has been diuresis well with the Bumex Continue Bumex 1mg daily with afternoon dose prn if needed Clinically stable HTN Mostly related to pain On Terazosin and Metoprolol Continue monitor BP ABNER Continue Cpap DVT px on Lovenox Code status full code Admission and Anticipated Discharge Date Admission Date: March 20, 2021 Subjective Pt was seen and examined for follow up of joint pain Lying in bed with no acute distress Pt said that he is having pain in his joints area He said that he was doing well in therapy and now he was unable to get up He said that his breathing is good Denies any hest pain, palpitation, dizziness and SOB Review of Systems Review of Systems: All systems reviewed & are unremarkable except as noted in Subjective Physical Exam Physical Exam: General- No acute distress, obese Head- atraumatic Eyes- PERRL, EOMI, ENT- oropharynx clear Neck- supple, no JVD Lungs- Diminished BS Heart- regular rhythm; no murmur Abdomen- normal bowel sounds, soft, nontender Extremities- no calf tenderness, +trace edema Neuro- alert, oriented x 3; PERRL, EOMI; no facial palsy; no dysarthria Skin- warm & dry Results & Data Results & Data ([facility]) Vital Signs (Past 12 Hours) Vital Signs Temp Pulse Pulse Resp BP BP Pulse Ox 03/21/21 17:11 81 03/21/21 16:41 36.8 C 20 98 03/21/21 16:24 36.8 C 84 20 118/84 98 03/21/21 15:15 37 C 83 18 123/64 98 03/21/21 13:00 37 C 82 22 152/78 H 96 03/21/21 12:00 76 21 147/79 H
[2021-03-21] MEDS: FLUTICASONE PROPIONATE NA SPR 16 GM BTL SCH (23:50)
[2021-03-22] MEDS: PANTOprazole 40 MG TAB PO SCH (05:43)
[2021-03-22] MEDS: oxyCODONE HCL IR 5 MG TAB (IMMEDIATE RELEASE) PO SCH ×4 (05:43→23:45)
[2021-03-22] MEDS: bisacodyL 5 MG TABEC PO SCH (09:37)
[2021-03-22] MEDS: METOPROLOL SUCC 25MG EXT REL TAB PO SCH (09:37)
[2021-03-22] MEDS: PREGABALIN 100 MG CAP PO SCH ×2 (09:37→21:18)
[2021-03-22] MEDS: ASPIRIN 81 MG ECTAB PO SCH (09:38)
[2021-03-22] MEDS: BUMETANIDE 1 MG TAB PO SCH (09:38)
[2021-03-22] MEDS: POTASSIUM CHLORIDE CRTAB 20 MEQ TABCR PO SCH (09:38)
[2021-03-22] MEDS: predniSONE 20 MG TAB PO SCH (09:38)
[2021-03-22] MEDS: FERROUS SULFATE 325 MG TAB PO SCH (09:38)
[2021-03-22] MEDS: sulfaSALAzine 500 MG TABEC PO SCH ×2 (09:38→21:13)
[2021-03-22] MEDS: IRBESARTAN 150 MG TAB PO SCH (09:39)
[2021-03-22] MEDS: DICLOFENAC SOD 1% GEL 100 GM TUBE EXT SCH ×3 (09:39→21:11)
[2021-03-22] MEDS: CITALOPRAM 20 MG TAB PO SCH (09:39)
[2021-03-22] MEDS: lamoTRIgine 100 MG TAB PO SCH (09:39)
[2021-03-22] MEDS ORDERED: MICONAZOLE NITRATE POWDER 43 GM EXT PRN (09:52)
[2021-03-22] MEDS: FLUTICASONE PROPIONATE NA SPR 16 GM BTL SCH (21:11)
[2021-03-22] MEDS: TERAZOSIN HCL 1 MG CAP PO SCH (21:12)
[2021-03-22] MEDS: PRAMIPEXOLE DIHYDROCHLO 0.5 MG TAB PO SCH (21:13)
--- NOTE | 2021-03-22 23:57 | Hospitalist Progress Note ---
Date of Service March 22, 2021 Assessment & Plan (1) Myalgia: Plan: Ambulatory dysfunction Present on admission with Joint pain and ambulatory dysfunction Mostly related to RA flares CTA head showed no acute intracranial abnormality. Currently on Sulfasalazine and oxycodone Case discussed with Rheumatology Dr. Taylor that recommended to start Prednisone taper 20mg daily x 3 days, then 15mg x3, 10mgx3 and 5mg Dr. Taylor will see him as an outpatient Continue PT/OT eval Fall precaution Heart failure Denies any SOB He said that he has been diuresis well with the Bumex Continue Bumex 1mg daily with afternoon dose prn if needed Clinically stable HTN Mostly related to pain BP improves On Terazosin and Metoprolol Continue monitor BP ABNER Continue Cpap DVT px on Lovenox Code status full code Disposition Plan to discharge to [facility] Admission and Anticipated Discharge Date Admission Date: March 20, 2021 Subjective Pt was seen and examined for follow up of joint pain Lying in bed with no acute distress Pt said that joints pain improve Denies any hest pain, palpitation, dizziness and SOB Review of Systems Review of Systems: All systems reviewed & are unremarkable except as noted in Subjective Physical Exam Physical Exam: General- No acute distress, obese Head- atraumatic Eyes- PERRL, EOMI, ENT- oropharynx clear Neck- supple, no JVD Lungs- Diminished BS Heart- regular rhythm; no murmur Abdomen- normal bowel sounds, soft, nontender Extremities- no calf tenderness, +trace edema Neuro- alert, oriented x 3; PERRL, EOMI; no facial palsy; no dysarthria Skin- warm & dry Results & Data Results & Data ([facility]) Vital Signs (Past 12 Hours) Vital Signs Temp Pulse Pulse Resp BP Pulse Ox 03/22/21 22:29 37.0 C 76 20 115/67 93 03/22/21 19:06 36.9 C 77 20 112/67 94 03/22/21 16:00 36.9 C 78 20 137/73 98 03/22/21 15:04 80
[2021-03-23] MEDS: oxyCODONE HCL IR 5 MG TAB (IMMEDIATE RELEASE) PO SCH ×4 (05:31→23:53)
[2021-03-23] MEDS: PANTOprazole 40 MG TAB PO SCH (05:31)
[2021-03-23] MEDS: predniSONE 20 MG TAB PO SCH (08:37)
[2021-03-23] MEDS: METOPROLOL SUCC 25MG EXT REL TAB PO SCH (08:37)
[2021-03-23] MEDS: CITALOPRAM 20 MG TAB PO SCH (08:38)
[2021-03-23] MEDS: ASPIRIN 81 MG ECTAB PO SCH (08:38)
[2021-03-23] MEDS: FERROUS SULFATE 325 MG TAB PO SCH (08:39)
[2021-03-23] MEDS: BUMETANIDE 1 MG TAB PO SCH (08:40)
[2021-03-23] MEDS: lamoTRIgine 100 MG TAB PO SCH (08:40)
[2021-03-23] MEDS: POTASSIUM CHLORIDE CRTAB 20 MEQ TABCR PO SCH (08:41)
[2021-03-23] MEDS: IRBESARTAN 150 MG TAB PO SCH (08:41)
[2021-03-23] MEDS: sulfaSALAzine 500 MG TABEC PO SCH ×2 (08:42→20:55)
[2021-03-23] MEDS: DICLOFENAC SOD 1% GEL 100 GM TUBE EXT SCH ×3 (08:43→20:55)
[2021-03-23] MEDS: bisacodyL 5 MG TABEC PO SCH (08:52)
[2021-03-23] MEDS: PREGABALIN 100 MG CAP PO SCH ×2 (08:52→20:58)
[2021-03-23] MEDS: FLUTICASONE PROPIONATE NA SPR 16 GM BTL SCH (20:54)
[2021-03-23] MEDS: PRAMIPEXOLE DIHYDROCHLO 0.5 MG TAB PO SCH (20:55)
[2021-03-23] MEDS: TERAZOSIN HCL 1 MG CAP PO SCH (20:58)
--- NOTE | 2021-03-23 23:19 | Hospitalist Progress Note ---
Date of Service March 23, 2021 Assessment & Plan (1) Myalgia: Plan: Ambulatory dysfunction Present on admission with Joint pain and ambulatory dysfunction Mostly related to RA flares CTA head showed no acute intracranial abnormality. Currently on Sulfasalazine and oxycodone Case discussed with Rheumatology Dr. Taylor that recommended to start Prednisone taper 20mg daily x 3 days, then 15mg x3, 10mgx3 and 5mg Dr. Taylor will see him as an outpatient Continue PT/OT eval Fall precaution Heart failure Denies any SOB He said that he has been diuresis well with the Bumex Continue Bumex 1mg daily with afternoon dose prn if needed Clinically stable HTN Mostly related to pain BP improves On Terazosin and Metoprolol Continue monitor BP ABNER Continue Cpap DVT px on Lovenox Code status full code Disposition Plan to discharge to [facility] , waiting for transport Admission and Anticipated Discharge Date Admission Date: March 23, 2021 Subjective Pt was seen and examined for follow up of joint pain Lying in bed with no acute distress Pt said that joints pain improve Denies any new complaints Review of Systems Review of Systems: All systems reviewed & are unremarkable except as noted in Subjective Physical Exam Physical Exam: General- No acute distress, obese Head- atraumatic Eyes- PERRL, EOMI, ENT- oropharynx clear Neck- supple, no JVD Lungs- Diminished BS Heart- regular rhythm; no murmur Abdomen- normal bowel sounds, soft, nontender Extremities- no calf tenderness, +trace edema Neuro- alert, oriented x 3; PERRL, EOMI; no facial palsy; no dysarthria Skin- warm & dry Results & Data Results & Data ([facility]) Vital Signs (Past 12 Hours) Vital Signs Temp Pulse Pulse Resp BP BP Pulse Ox 03/23/21 22:33 73 03/23/21 22:26 36.7 C 65 20 144/81 H 90 03/23/21 20:49 70 133/76 03/23/21 19:54 36.9 C 76 20 151/84 H 95 03/23/21 16:00 77 03/23/21 15:48 37.0 C 76 20 135/83 94 03/23/21 11:33 36.6 C 74 18 123/80 96
[2021-03-24] MEDS: oxyCODONE HCL IR 5 MG TAB (IMMEDIATE RELEASE) PO SCH ×2 (05:43→12:55)
[2021-03-24] MEDS: PANTOprazole 40 MG TAB PO SCH (05:43)
[2021-03-24] MEDS: IRBESARTAN 150 MG TAB PO SCH (08:22)
[2021-03-24] MEDS: ASPIRIN 81 MG ECTAB PO SCH (08:22)
[2021-03-24] MEDS: FERROUS SULFATE 325 MG TAB PO SCH (08:22)
[2021-03-24] MEDS: BUMETANIDE 1 MG TAB PO SCH (08:22)
[2021-03-24] MEDS: lamoTRIgine 100 MG TAB PO SCH (08:22)
[2021-03-24] MEDS: CITALOPRAM 20 MG TAB PO SCH (08:22)
[2021-03-24] MEDS: POTASSIUM CHLORIDE CRTAB 20 MEQ TABCR PO SCH (08:23)
[2021-03-24] MEDS: predniSONE 20 MG TAB PO SCH (08:23)
[2021-03-24] MEDS: sulfaSALAzine 500 MG TABEC PO SCH (08:23)
[2021-03-24] MEDS: METOPROLOL SUCC 25MG EXT REL TAB PO SCH (08:23)
[2021-03-24] MEDS: bisacodyL 5 MG TABEC PO SCH (08:25)
[2021-03-24] MEDS: PREGABALIN 100 MG CAP PO SCH (08:25)
[2021-03-24] MEDS: DICLOFENAC SOD 1% GEL 100 GM TUBE EXT SCH (08:26)
--- NOTE | 2021-03-24 12:40 | Discharge Summary ---
Date of Service March 24, 2021 Admission HPI Per Admitting Provider History obtained from patient, family, and records. Medical history significant for diastolic CHF (EF 55 to 60%, TTE 2020), hypertension, ABNER on CPAP, mood disorder, RLS, chronic pain secondary to rheumatoid arthritis on narcotics and sulfasalazine, septic arthritis status post surgery/antibiotic Rx, chronic anemia (baseline hemoglobin of 10). Last confinement 2 weeks ago for decompensated heart failure. Patient discharged on Bumex Rx. Patient not feeling well the last few days. Feeling achy all over. [place] like he was getting septic again. No chest pain, no S OB, no cough, no abdominal pain, no diarrhea. Achy headache symptoms. Concerned about weight gain/px nonadherence with fluid restriction at [facility] rehab facility which patient disputes. Weight actually better as per patient. Patient claims he is not being weighed properly at facility by staff. Patient given IV Bumex at the ER. Medical History as above Surgical History : Orthopedic procedures Family History : HTN Personal/Social history : Non-smoker, no EtOH intake, disabled Discharge Data Allergies Allergy/AdvReac Type Severity Reaction Status Date / Time No Known Allergies Allergy Verified 03/20/21 21:28 Consultations 03/20/21 19:14 ED Decision to Admit Stat Ordered Studies 03/20/21 16:53 CT head/brain wo con Stat Hospital Course (1) Myalgia: Ambulatory dysfunction Present on admission with Joint pain and ambulatory dysfunction Mostly related to RA flares CTA head showed no acute intracranial abnormality. Currently on Sulfasalazine and oxycodone Case discussed with Rheumatology Dr. Taylor that recommended to start Prednisone taper 20mg daily x 3 days, then 15mg x3, 10mgx3 and 5mg Dr. Taylor will see him as an outpatient Continue PT/OT eval Fall precaution Heart failure Denies any SOB He said that he has been diuresis well with the Bumex Continue Bumex 1mg daily with afternoon dose prn if needed Clinically stable HTN Mostly related to pain BP improves On Terazosin and Metoprolol Continue monitor BP ABNER Continue Cpap DVT px on Lovenox Code status full code Disposition Plan to discharge to [facility] , waiting for transport Discharge Plan Discharge Items Patient Disposition: Transfer Alf Fac Reason For Visit: HTN, BODY ACHES Discharge Diagnosis: Myalgia Ambulatory dysfunction Heart failure Hypertension Obstructive sleep apnea Activity: Resume your previous activity Non-emergency contact: Primary Care Provider and Specialist Call non-emergency contact if: you have any medication questions Follow-up/Referrals: Chano Stearns [Primary Care Provider] - Diet: Heart Healthy Fluids: 2000ml (8 cups) Addtl Attending Provider Instructions: Follow up with your primary care provider at [facility] within 1 week Follow up with rheumatology Dr. Taylor for the rheumatoid arthritis (please call to schedule for the appointment) Continue physical and occupational therapy Continue follow 2 Liters fluid restriction daily Fall precaution Continue Cpap machine at night Continue prednisone taper course Ok to take an extra dose of Bumex in the afternoon as needed if you develop any sign of fluid overload Pending Studies at Discharge: No Stand-Alone Forms: My [facility] Skilled Items Patient informed of condition?: Yes DNR: No Discharge Level of Care: Skilled Communicable Disease: No Discharge Prognosis: Stable Lines: None Urinary Catheter: No Medications and DC Order Prescriptions: New prednisone 10 mg tablet 105 mg PO UD Qty: 10 RF: 0 Continued bumetanide [Bumex] 1 mg Tablet 1 mg PO DAILY PRN (Reason: Fluid Retention) RF: 0 menthol-zinc oxide [Calmoseptine] 0.44-20.6 % Ointment 1 applic TOPICAL TID RF: 0 nystatin 100,000 unit/gram Powder 1 applic TOPICAL BID RF: 0 cyclobenzaprine 10 mg Tablet 10 mg PO TID RF: 0 sulfasalazine 500 mg Tablet,Delayed Release (Dr/Ec) 1 g PO BID RF: 0 pramipexole [Mirapex] 0.5 mg Tablet 0.5 mg PO HS RF: 0 magnesium hydroxide [Milk of Magnesia] 400 mg/5 mL Suspension 30 ml PO UD PRN (Reason: Constipation, IF NO BM FOR 3 DAYS) RF: 0 pregabalin [Lyrica] 100 mg Capsule 100 mg PO BID RF: 0 diclofenac sodium 1 % Gel 4 g TOPICAL TID RF: 0 acetaminophen [Tylenol] 325 mg Tablet 650 mg PO Q6H MDD 3G PRN (Reason: Fever > 101 F) RF: 0 lamotrigine [Lamictal] 200 mg Tablet 400 mg PO DAILY RF: 0 aspirin 81 mg Tablet,Delayed Release (Dr/Ec) 81 mg PO DAILY RF: 0 citalopram [Celexa] 20 mg Tablet 20 mg PO DAILY RF: 0 ferrous sulfate 325 mg (65 mg iron) Tablet 325 mg PO DAILY RF: 0 lansoprazole 30 mg Capsule,Delayed Release(Dr/Ec) 30 mg PO DAILYBB RF: 0 bisacodyl 5 mg Tablet,Delayed Release (Dr/Ec) 5 mg PO DAILY RF: 0 polyethylene glycol 3350 [Miralax] 17 gram/dose Powder 17 g PO DAILY PRN (Reason: Constipation) RF: 0 fluticasone propionate 50 mcg/actuation [place],Suspension 2 spray INTRANASAL HS RF: 0 irbesartan 300 mg Tablet 300 mg PO DAILY RF: 0 potassium chloride [Klor-Con M20] 20 mEq Tablet,Er Particles/Crystals 20 meq PO DAILY Qty: 30 RF: 0 bumetanide 1 mg Tablet 1 mg PO QAM Qty: 30 RF: 0 metoprolol succinate 25 mg Tablet Extended Release 24 Hr 25 mg PO QAM 30 Days Qty: 30 RF: 0 terazosin 1 mg Capsule 1 mg PO HS Qty: 30 RF: 0 Changed oxycodone 10 mg Tablet 10 mg PO Q6H PRN (Reason: severe pain (scale score 7-10)) Qty: 10 RF: 0 Discharge Orders: Discharge Order (Routine); Ordered 03/24/21 Ordered By: Alek Whitney Admission Data Admit Date/Time: 03/23/21 07:29 Attending Provider: Alek Whitney Admit Provider: Jose Patterson Primary Care Provider: Chano Stearns Other Providers: Jose Patterson
== END 2021-03-24 13:43 | DRG 546 ==
LOC: EDINP 15:58 → ED 15:58 → 2W 03-21 16:18